=== PATIENT | male | born 1950 | race Caucasian/White ===

== ENCOUNTER 2020-12-17 09:16 | Outpatient (REF) | payer OTHER, SELFPAY ==
--- NOTE | 2020-12-17 16:15 | MHC.AU.HFU ---
Hearing Instrument Follow-Up- Binaural Date of Visit: 12/17/20 Right Ear: [employer] Supervisor: [employer] Model: Miryam 2 Pro BTE Serial Number: [id number] Repair Warranty: Loss and Damage Warranty: Battery Size: 13 Tubing: Size 3 1.3 slim tube Type of Dome: 8mm closed dome Left Ear: [employer] Supervisor: [employer] Model: Miryam 2 Pro BTE Serial Number: [id number] Repair Warranty: Loss and Damage Warranty: Battery Size: 13 Tubing: Size 3 1.3 slim tube Type of Dome: 8mm closed Follow-Up Summary: Patient arrived for audio eval scheduled by [facility]. 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 He states that the tumor removed from his left ear was approximately the size of Cutie's kristopher, and the one on the right ear was much smaller, about the size of a finger nail. A portion of Mr. Ernandez's left pinna was removed, with a large hole left in the servando bowl area. Other changes to his medical history include congestive heart failure that began approximately one year ago. Performed hearing aid maintenance today. Cleaned hearing aids, replaced slim tubes, retention wires, and domes. Aids are working well. Advised [facility] to schedule another hearing evaluation once Mr. Ernandez is fully recovered from his surgery. Diagnosis Code(s): Primary Diagnosis: H90.3 Bilateral Sensorineural Hearing Loss Signature: Provider: Izabela Gutierrez, [facility]
== END 2020-12-17 09:17 | disposition home or self-care (01) ==
LOC: HO.SH 09:16
PROVIDERS: Visit Provider Internal Medicine
DX: Z13.89 Encounter for screening for other disorder (principal)

== ENCOUNTER 2025-03-11 13:25 | Outpatient (AMB) | payer OTHER, SELFPAY ==
--- OUTSIDE RECORDS SUMMARY | 2024-08-29 06:19 | XMS_ITS | Continuity of Care Document ---
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 tel:[phone] [facility], [address] [facility], [place], [place], [id number], [place] tel:[phone] [place] Diabetes with renal manifestations, type II or unspecified type, uncontrolled 4 Josue Poole. [address], [place], [place], [id number]. tel:[phone] [facility], [address] [facility] [address] [facility], [place], [place], [id number], [place] tel:[phone] [place] abdominal pain and hip pain (chief complaint) Osteoarthrosis involving or with mention of multiple sites, but not specified as generalizedAbdominal pain, other specified site 4 No Information [facility], [address] [facility] [address] [facility], [place], [place], [id number], [place] tel:[phone] [place] abdominal pain (chief complaint) Abdominal Pain 4 Josue Poole. [address], [place], [place], [id number]. tel:[phone] [facility], [address] [facility] [facility], [place], [place], [id number], [place] tel:[phone] [place] Follow Up of medication (chief complaint)UT I (chief complaint) Dysuria 4 No Information [facility], [address] [facility] [address] [facility], [place], [place], [id number], [place] tel:[phone] [place] Cervicalgia 4 No Information [facility], [address] [facility] [address] [facility], [place], [place], [id number], [place] tel:[phone] [place] anxiety and blood pressure (chief complaint) Disruption of 24 hour sleep wake cycle, unspecifiedAnxietyHyp ertension, UnspecifiedIntestinal disaccharidase deficiencies and disaccharide malabsorptionDiabetes with peripheral circulatory disorders, type II or unspecified type, not stated as uncontrolledObesity, MorbidBMI 40.0-44.9, ADULT 4 No Information [facility], [address] [facility], [place], [place], [id number], tel:[phone] [place] Anxiety and DM (chief complaint) AnxietyDiabetes with peripheral circulatory disorders, type II or unspecified type, not stated as uncontrolledHypertens ion, Unspecified 4 No Information [facility], [address] [facility] [address], [place], [place], [id number], [place] tel:[phone] [place] neck pain (chief complaint)mo od (chief complaint) AnxietyAnxietyBrachia l neuritis or radiculitis nos 4 Josue Poole. [address], [place], [place], [id number]. tel:[phone] [facility], [address] [facility] [address], [place], [place], [id number], [place] tel:[phone] [place] incontinence , HTN and diabetes (chief complaint) Hypertension, UnspecifiedInternal hemorrhoids without mention of complicationDiabetes with peripheral circulatory disorders, type II or unspecified type, not stated as uncontrolled 3 No Information [facility], [facility], [place], [place], [id number], [place] tel:[phone] [place] [facility] enteritis o f unspecified site 3 Josue Poole. [address], [place], [place], [id number]. tel:[phone] [facility], [address] [facility] [address], [place], [place], [id number], [place] tel:[phone] [place] Mixed Hyperlipidemia 3 Josue Poole. [address], [place], [place], [id number]. tel:[phone] [facility], [address], [place], [place], [id number], [place] tel:[phone] [place] headache (chief complaint) Headache 3 Josue Poole. [address], [place], [place], [id number]. tel:[phone] [facility], [address] [facility] [address] [facility], [place], [place], [id number], [place] tel:[phone] [place] No Information 3 Puffer Gina Jackeline. [address] [place], [place], [id number]. tel:[phone] [facility], [address] [facility] [address] [facility], [place], [place], [id number], [place] tel:[phone] [place] No Information 3 No Information [facility], 1 [facility], [place], [place], [id number], [place] tel:[phone] [place] No Information 3 No Information [facility], 1 [facility], [place], [place], [id number], [place] tel:[phone] [place] DM/Hlth Main/Dis Mgmt (chief complaint) Diabetes with neurological manifestations, type II or unspecified type, not stated as uncontrolled 3 No Information [facility], 1 [facility], [place], [place], [id number], [place] tel:[phone] [place] No Information 3 Puffer Gina Jackeline. [address] [place], [place], [id number]. tel:[phone] [facility], [address], [place], [place], [id number], [place] tel:[phone] [place] diarrhea (chief complaint) DiarrheaHypertension, UnspecifiedUnspecifie d cataract 3 Josue Poole. [address], [place], [id number]. tel:[phone] [facility], [address] [facility] [address] [facility], [place], [place], [id number], [place] tel:[phone] [place] post enrollment eval (chief complaint) Diabetes with peripheral circulatory disorders, type II or unspecified type, not stated as uncontrolledPeriphera l vascular disease, unspecifiedDiabetes with neurological manifestations, type II or unspecified type, not stated as uncontrolledPeriphera l angiopathy in diseases classified elsewherePolyneuropat hy in diabetesTinnitus, unspecifiedTobacco Abuse, History ofOther and unspecified injury to headPost-void dribblingCalculus of kidneyFatigue / MalaiseCarpal Tunnel SyndromeObesity, MorbidDiabetes with peripheral circulatory disorders, type II or unspecified type, not stated as uncontrolledPeriphera l vascular disease, unspecifiedDiabetes with renal manifestations, type II or unspecified type, uncontrolledChronic kidney disease, Stage II (mild)Diabetes with neurological manifestations, type II or unspecified type, not stated as uncontrolledPolyneuro zayra in diabetesHypertension, UnspecifiedDiabetes with ophthalmic manifestations, type II or unspecified type, not stated as uncontrolledBackgroun d diabetic retinopathyDysphagia 0 8201 3 No Information [facility], [facility], [place], [place], [id number], [place] tel:[phone] [place] Chronic kidney disease, Stage II (mild)Diabetes with renal manifestations, type II or unspecified type, uncontrolled May-0 6-201 3 Josue Poole. [address], [place], [place], [id number]. tel:[phone] [facility], [facility], [place], [place], [id number], [place] tel:[phone] [place] No Information 0 3-201 3 David Sandhu. [address] [place], [place], [id number]. tel:[phone] [facility], [facility], [place], [place], [id number], [place] tel:[phone] [place] No Information 3-201 3 Despmarco antonio Cash. [address] [facility] [facility], [place], [address]. tel:[phone] [facility], 1 [facility], [place], [place], [id number], [place] tel:[phone] 30 min spent reviewing/donnelly mmarizing medical records (chief complaint) Diabetes with ophthalmic manifestations, type II or unspecified type, not stated as uncontrolledBackgroun d diabetic retinopathyDiabetic cataractMixed HyperlipidemiaRoutine Medical ExamMRSA ELSEWHERE/NOSBipolar disorder, unspecifiedAllergic rhinitis, cause unspecifiedBicuspid Aortic ValveBrachial neuritis or radiculitis nosRegional enteritis of unspecified siteGERDChronic lymphocytic thyroiditisHypertensi on, UnspecifiedInternal hemorrhoids without mention of complicationIntestina l disaccharidase deficiencies and disaccharide malabsorptionOsteoart hrosis involving or with mention of multiple sites, but not specified as generalizedS/P Valve ReplacementUnspecifie d vitamin D deficiencyMULT SEG SM BOWEL EXCISPART LG BOWEL EXCISION 1- 3 No Information [facility], [address] [address], [place], [place], [id number], [place] tel:[phone] [place] pre enrollment (chief complaint) Respiratory InsufficiencyObesity, Morbid Sep-2 0-201 3 Josue Poole. [address], [place], [place], [id number]. tel:[phone] Family History Family Member Type Diagnosis Age At Onset Mother Problem (finding) coronary arterioscleros is Brother Problem (finding) diabetes melli tus in first degree relative Mother Problem (finding) diabetes melli tus in first degree relative Sister Problem (finding) diabetes melli tus in first degree relative Immunizations Vaccine Date Status Comments Flu (split) (3 yrs or older) administered Note: Ppt reports receiving vaccine at pharmacy on said date. ; Source: New Immunization Record Tdap administered Source: Source Unspecified flu (split) (3 yrs or older) administered Source: New Immunization Record Zoster pending Source: New Imm unization Record Flu (split) (3 yrs or older) cancelled Source: New Immunization Record Payers Payer name Insurance type Covered alliance party ID Renny shankar(s) [facility] 16 [id number] [address] [id number] [place] [phone] [id number] Social History Type Description Quantity Date Captured Comments Sex Male Smoking Status No Information Chief Complaint And Reason For Visit No Information Plan Of Treatment Date Type Action Status Goal Urine Microalbumin. Due on due Goal H&P. Due on due Goal Eye Exam. Due on due Goal Mammogram (Scree valeriy); Bilateral. Due on due Goal Foot Exam. Due on due Goal TSH. Due on due Goal Mammogram (Scree valeriy); Bilateral. Due on due Goal Urine Microalbumin. Due on due Goal H&P. Due on due Goal Foot Exam. Due on due Goal TSH. Due on due Goal Eye Exam. Due on due Goal Eye Exam. Due on due Goal TSH. Due on due Goal H&P. Due on due Goal Urine Microalbumin. Due on due Goal Foot Exam. Due on due Goal Mammogram (Scree valeriy); Bilateral. Due on due Goal Urine Microalbumin. Due on due Goal Mammogram (Scree valeriy); Bilateral. Due on due Goal Eye Exam. Due on due Goal Foot Exam. Due on due Goal TSH. Due on due Goal H&P. Due on due Goal Foot Exam. Due on due Goal TSH. Due on due Goal Mammogram (Scree valeriy); Bilateral. Due on due Goal Urine Microalbumin. Due on due Goal Eye Exam. Due on due Goal H&P. Due on due Goal Urine Microalbumin. Due on due Goal TSH. Due on due Goal Foot Exam. Due on due Goal Eye Exam. Due on due Goal H&P. Due on due Goal Mammogram (Scree valeriy); Bilateral. Due on due Goal Foot Exam. Due on due Goal Urine Microalbumin. Due on due Goal H&P. Due on due Goal Mammogram (Scree valeriy); Bilateral. Due on due Goal Eye Exam. Due on due Goal TSH. Due on due Goal Mammogram (Scree valeriy); Bilateral. Due on due Goal Urine Microalbumin. Due on due Goal Foot Exam. Due on due Goal H&P. Due on due Goal Eye Exam. Due on due Goal TSH. Due on due Goal H&P. Due on due Goal Foot Exam. Due on due Goal Mammogram (Scree valeriy); Bilateral. Due on due Goal Urine Microalbumin. Due on due Goal TSH. Due on due Goal Eye Exam. Due on due Goal Eye Exam. Due on due Goal Mammogram (Scree valeriy); Bilateral. Due on due Goal Foot Exam. Due on due Goal Urine Microalbumin. Due on due Goal H&P. Due on due Goal TSH. Due on due Goal Mammogram (Scree valeriy); Bilateral. Due on due Goal Eye Exam. Due on due Goal Urine Microalbumin. Due on due Goal Foot Exam. Due on due Goal H&P. Due on due Goal TSH. Due on due Goal Diabetes screening due Goal PSA. Due on due Goal H&P. Due on due Goal Eye Exam. Due on due Goal Urine Microalbumin. Due on due Goal Mammogram (Scree valeriy); Bilateral. Due on due Goal Foot Exam. Due on due Goal TSH. Due on due Goal Foot Exam. Due on due Goal Eye Exam. Due on due Goal TSH. Due on due Goal H&P. Due on due Goal PSA. Due on due Goal Urine Microalbumin. Due on due Goal Mammogram (Scree valeriy); Bilateral. Due on due Goal Hemoglobin A1C. Due on due Goal PSA. Due on due Goal TSH. Due on due Goal Hemoglobin A1C. Due on due Goal Urine Microalbumin. Due on due Goal Mammogram (Scree valeriy); Bilateral. Due on due Goal Eye Exam. Due on due Goal H&P. Due on due Goal Foot Exam. Due on due Goal Mammogram (Scree valeriy); Bilateral. Due on due Goal PSA. Due on due Goal Urine Microalbumin. Due on due Goal TSH. Due on due Goal Hemoglobin A1C. Due on due Goal Foot Exam. Due on due Goal Eye Exam. Due on due Goal H&P. Due on due Goal Eye Exam. Due on due Goal TSH. Due on due Goal Foot Exam. Due on due Goal H&P. Due on due Goal Mammogram (Scree valeriy); Bilateral. Due on due Goal Urine Microalbumin. Due on due Goal Hemoglobin A1C. Due on due Goal PSA. Due on due Goal Eye Exam. Due on due Goal H&P. Due on due Goal Foot Exam. Due on due Goal Urine Microalbumin. Due on due Goal Mammogram (Scree valeriy); Bilateral. Due on due Goal PSA. Due on due Goal TSH. Due on due Goal Urine Microalbumin. Due on due Goal Foot Exam. Due on due Goal Eye Exam. Due on due Goal H&P. Due on due Goal Mammogram (Scree valeriy); Bilateral. Due on due Goal PSA. Due on due Goal Hemoglobin A1C. Due on due Goal TSH. Due on due Goal Eye Exam. Due on due Goal Foot Exam. Due on due Goal Urine Microalbumin. Due on due Goal PSA. Due on due Goal Mammogram (Scree valeriy); Bilateral. Due on due Goal H&P. Due on due Goal TSH. Due on due Goal PSA. Due on due Goal Hemoglobin A1C. Due on due Goal Urine Microalbumin. Due on due Goal Eye Exam. Due on due Goal Mammogram (Scree valeriy); Bilateral. Due on due Goal H&P. Due on due Goal TSH. Due on due Goal Foot Exam. Due on due Goal H&P. Due on due Goal PSA. Due on due Goal Urine Microalbumin. Due on due Goal Mammogram (Scree valeriy); Bilateral. Due on due Goal Eye Exam. Due on due Goal TSH. Due on due Goal Foot Exam. Due on due Goal Eye Exam. Due on due Goal Mammogram (Scree valeriy); Bilateral. Due on due Goal TSH. Due on due Goal Urine Microalbumin. Due on due Goal PSA. Due on due Goal Foot Exam. Due on due Goal Hemoglobin A1C. Due on due Goal H&P. Due on due Goal TSH. Due on due Goal Hemoglobin A1C. Due on due Goal Foot Exam. Due on due Goal Urine Microalbumin. Due on due Goal Eye Exam. Due on due Goal Mammogram (Scree valeriy); Bilateral. Due on due Goal PSA. Due on due Goal Eye Exam. Due on due Goal TSH. Due on due Goal Foot Exam. Due on due Goal Hemoglobin A1C. Due on due Goal Mammogram (Scree valeriy); Bilateral. Due on due Goal Urine Microalbumin. Due on due Goal PSA. Due on due Goal Eye Exam. Due on due Goal Mammogram (Scree valeriy); Bilateral. Due on due Goal Foot Exam. Due on due Goal PSA. Due on due Goal Urine Microalbumin. Due on due Goal TSH. Due on due Goal Eye Exam. Due on due Goal Mammogram (Scree valeriy); Bilateral. Due on due Goal TSH. Due on due Goal PSA. Due on due Goal Urine Microalbumin. Due on due Goal Foot Exam. Due on due Goal Eye Exam. Due on due Goal Mammogram (Scree valeriy); Bilateral. Due on due Goal Hemoglobin A1C. Due on due Goal TSH. Due on due Goal Foot Exam. Due on due Goal Urine Microalbumin. Due on due Goal PSA. Due on due Goal Foot Exam. Due on 5 due Goal Urine Microalbumin. Due on due Goal Mammogram ([place] pfeifferg); Bilateral. Due on due Goal TSH. Due on due Goal Eye Exam. Due on due Goal PSA. Due on due Goal TSH. Due on due Goal Eye Exam. Due on due Goal Urine Microalbumin. Due on due Goal PSA. Due on due Goal Urine Microalbumin. Due on due Goal PSA. Due on due Goal Eye Exam. Due on due Goal TSH. Due on due Goal Urine Microalbumin. Due on due Goal TSH. Due on due Goal PSA. Due on due Goal Eye Exam. Due on due Goal TSH. Due on due Goal Urine Microalbumin. Due on due Goal PSA. Due on due Goal Eye Exam. Due on due Goal Eye Exam. Due on due Goal ALT. Due on due Goal Hemoglobin A1C. Due on due Goal PSA. Due on due Goal ECG. Due on due Goal Urine Microalbumin. Due on due Goal TSH. Due on due Goal AST. Due on due Goal Urine Microalbumin. Due on due Goal ECG. Due on due Goal Eye Exam. Due on due Goal TSH. Due on due Goal PSA. Due on due Goal Hemoglobin A1C. Due on due Goal TSH. Due on due Goal Hemoglobin A1C. Due on due Goal ECG. Due on due Goal ALT. Due on due Goal Urine Microalbumin. Due on due Goal PSA. Due on due Goal Eye Exam. Due on due Goal AST. Due on due Goal AST. Due on due Goal Eye Exam. Due on due Goal Hemoglobin A1C. Due on due Goal TSH. Due on due Goal Urine Microalbumin. Due on due Goal ECG. Due on due Goal ALT. Due on due Goal PSA. Due on due Goal Urine Microalbumin. Due on due Goal TSH. Due on due Goal PSA. Due on due Goal ECG. Due on due Goal Eye Exam. Due on due Goal ALT. Due on due Goal AST. Due on due Goal ALT. Due on due Goal TSH. Due on due Goal Eye Exam. Due on due Goal Hemoglobin A1C. Due on due Goal Urine Microalbumin. Due on due Goal AST. Due on due Goal PSA. Due on due Goal ECG. Due on due Goal ALT. Due on due Goal Hemoglobin A1C. Due on due Goal AST. Due on due Goal Eye Exam. Due on due Goal TSH. Due on due Goal Lipid Panel. Due on 014 due Goal ECG. Due on due Goal PSA. Due on due Goal Urine Microalbumin. Due on due Goal AST. Due on due Goal ALT. Due on due Goal Urine Microalbumin. Due on due Goal Hemoglobin A1C. Due on due Goal Lipid Panel. Due on 014 due Goal PSA. Due on due Goal TSH. Due on due Goal ECG. Due on due Goal Eye Exam. Due on due Goal PSA. Due on due Goal Hemoglobin A1C. Due on due Goal ALT. Due on due Goal Eye Exam. Due on due Goal AST. Due on due Goal Lipid Panel. Due on due Goal ECG. Due on due Goal TSH. Due on due Goal Urine Microalbumin. Due on due Goal Hemoglobin A1C. Due on due Goal AST. Due on due Goal Lipid Panel. Due on due Goal ALT. Due on due Goal Urine Microalbumin. Due on due Goal Eye Exam. Due on due Goal ECG. Due on due Goal PSA. Due on due Goal TSH. Due on due Goal PSA. Due on due Goal Eye Exam. Due on due Goal Hemoglobin A1C. Due on due Goal ECG. Due on due Goal ALT. Due on due Goal Lipid Panel. Due on due Goal Urine Microalbumin. Due on due Goal AST. Due on due Goal TSH. Due on due Goal Urine Microalbumin. Due on due Goal PSA. Due on due Goal AST. Due on due Goal Lipid Panel. Due on due Goal TSH. Due on due Goal Hemoglobin A1C. Due on due Goal ALT. Due on due Goal Eye Exam. Due on due Goal ECG. Due on due Goal ECG. Due on due Goal ALT. Due on due Goal Lipid Panel. Due on due Goal PSA. Due on due Goal TSH. Due on due Goal Eye Exam. Due on due Goal AST. Due on due Goal Hemoglobin A1C. Due on due Goal Urine Microalbumin. Due on due Goal ALT. Due on due Goal Lipid Panel. Due on due Goal TSH. Due on due Goal ECG. Due on due Goal PSA. Due on due Goal Urine Microalbumin. Due on due Goal AST. Due on due Goal Eye Exam. Due on due Goal Hemoglobin A1C. Due on due Goal TSH. Due on due Goal AST. Due on due Goal Hemoglobin A1C. Due on due Goal ECG. Due on due Goal ALT. Due on due Goal Urine Microalbumin. Due on due Goal Eye Exam. Due on due Goal PSA. Due on due Goal Lipid Panel. Due on due Goal PSA. Due on due Goal Hemoglobin A1C. Due on due Goal Eye Exam. Due on due Goal ALT. Due on due Goal AST. Due on due Goal TSH. Due on due Goal Urine Microalbumin. Due on due Goal Lipid Panel. Due on due Goal ECG. Due on due Goal AST. Due on due Goal TSH. Due on due Goal Urine Microalbumin. Due on due Goal ALT. Due on due Goal Lipid Panel. Due on due Goal PSA. Due on due Goal Eye Exam. Due on due Goal ECG. Due on due Goal H&P. Due on due Goal Hemoglobin A1C. Due on due Goal PSA. Due on due Goal H&P. Due on due Goal ECG. Due on due Goal Hemoglobin A1C. Due on due Goal Lipid Panel. Due on due Goal Urine Microalbumin. Due on due Goal Eye Exam. Due on due Goal Eye Exam. Due on due Goal Lipid Panel. Due on due Goal ECG. Due on due Goal H&P. Due on due Goal PSA. Due on due Goal Urine Microalbumin. Due on due Goal Urine Microalbumin. Due on due Goal Lipid Panel. Due on due Goal H&P. Due on due Goal ECG. Due on due Goal PSA. Due on due Goal Eye Exam. Due on due Goal ECG. Due on due Goal Urine Microalbumin. Due on due Goal H&P. Due on due Goal Lipid Panel. Due on due Goal Eye Exam. Due on due Goal PSA. Due on due Goal Lipid Panel. Due on due Goal Eye Exam. Due on due Goal ECG. Due on due Goal Urine Microalbumin. Due on due Goal H&P. Due on due Goal PSA. Due on due Goal Urine Microalbumin. Due on due Goal ECG. Due on due Goal Eye Exam. Due on due Goal H&P. Due on due Goal Lipid Panel. Due on due Goal PSA. Due on due Goal ECG. Due on due Goal H&P. Due on due Goal Urine Microalbumin. Due on due Goal Eye Exam. Due on due Goal Lipid Panel. Due on due Goal PSA. Due on due Goal Lipid Panel. Due on due Goal H&P. Due on due Goal PSA. Due on due Goal ECG. Due on due Goal BMP fasting. Due on due Goal Urine Microalbumin. Due on due Goal PSA. Due on due Goal Lipid Panel. Due on due Goal BMP fasting. Due on due Goal ECG. Due on due Goal Urine Microalbumin. Due on due Goal H&P. Due on due Goal BMP fasting. Due on due Goal ECG. Due on due Goal Lipid Panel. Due on due Goal PSA. Due on due Goal Urine Microalbumin. Due on due Goal H&P. Due on due Goal BMP fasting. Due on due Goal H&P. Due on due Goal ECG. Due on due Goal H&P. Due on due Goal ECG. Due on due Goal BMP fasting. Due on due Goal BMP fasting. Due on due Goal ECG. Due on due Goal H&P. Due on due Goal BMP fasting. Due on due Goal ECG. Due on due Goal H&P. Due on due Goal ECG. Due on due Goal BMP fasting. Due on due Goal H&P. Due on due Goal ECG. Due on due Goal BMP fasting. Due on due Goal H&P. Due on due Goal ECG. Due on due Goal H&P. Due on due Goal BMP fasting. Due on due Goal BMP fasting. Due on due Goal ECG. Due on due Goal H&P. Due on due Goal ECG. Due on due Goal BMP fasting. Due on due Goal H&P. Due on due Goal BMP fasting. Due on due Goal ECG. Due on due Goal ECG. Due on due Goal Hemoglobin A1C. Due on due Goal ECG. Due on due Goal ECG. Due on due Goal Hemoglobin A1C. Due on due Goal ECG. Due on due Goal Hemoglobin A1C. Due on due Goal ECG. Due on due Goal BMP fasting. Due on due Goal Foot Exam. Due on due Goal Urine Microalbumin. Due on due Goal BMP fasting. Due on due Goal Urine Microalbumin. Due on due Goal ECG. Due on due Goal Foot Exam. Due on due Goal Foot Exam. Due on due Goal ECG. Due on due Goal BMP fasting. Due on due Goal Urine Microalbumin. Due on due Goal Urine Microalbumin. Due on due Goal ECG. Due on due Goal BMP fasting. Due on due Goal Foot Exam. Due on due Goal Urine Microalbumin. Due on due Goal Foot Exam. Due on due Goal BMP fasting. Due on due Goal ECG. Due on due Goal ECG. Due on due Goal BMP fasting. Due on due Goal Foot Exam. Due on due Goal Urine Microalbumin. Due on due Goal BMP fasting. Due on due Goal ECG. Due on due Goal Urine Microalbumin. Due on due Goal Foot Exam. Due on 4 due Goal ECG. Due on due Goal Foot Exam. Due on 4 due Goal BMP fasting. Due on due Goal PSA. Due on due Goal Urine Microalbumin. Due on due Goal PSA. Due on due Goal ECG. Due on due Goal Foot Exam. Due on 4 due Goal BMP fasting. Due on due Goal Urine Microalbumin. Due on due Goal Urine Microalbumin. Due on due Goal ECG. Due on due Goal Foot Exam. Due on 3 due Goal PSA. Due on due Goal BMP fasting. Due on due Goal TSH. Due on due Goal BMP fasting. Due on due Goal TD Vaccine. Due on 23 due Goal Lipid Panel. Due on due Goal Hemoglobin A1C. Due on due Goal Influenza Vaccine. Due on due Goal H&P. Due on due Goal ECG. Due on due Goal ALT. Due on due Goal AST. Due on due Goal PSA. Due on due Goal Colonoscopy. Due on 022 due Goal Pneumococcal Vaccine. Due on due Goal Eye Exam. Due on due Goal Foot Exam. Due on 3 due Goal PPD (TST). Due on 4 due Goal Urine Microalbumin. Due on due Referral Ordered: Referrals: Orthopedic Surgery. Consult Appointment date/timeframe: 03/26/2015 ordered Referral Ordered: Dr Swanson (related to Onychocryptosis) ordered Referral Referred To: Dr Swanson Ordered: Referrals: Podiatry. Dr Swanson ordered Referral Ordered: Referrals: Podiatry. Consult Appointment date/timeframe: 02/04/2015 ordered Referral Ordered: Referrals: Podiatry ordered Referral Ordered: Modified Barium Swallow Appointment date/timeframe: 07/04/2014 ordered Referral Ordered: Dentistry (related to Routine Medical Exam) ordered Referral Ordered: referred to Speech Therapy for evaluation 2 Weeks (related to Dysphagia as late effect of cerebrovascular disease) ordered Referral Ordered: Referrals: Cardiology. Location: [facility] Dr Sibley. Evaluate and treat Appointment date/timeframe: 06/19/2014 ordered Referral Ordered: Referrals: Dentistry. Evaluate and treat Appointment date/timeframe: next dental ordered Referral Ordered: Referrals: Cardiology. Consult Appointment date/timeframe: 06/19/2014 ordered Referral Referred To: Dr Velazco Ordered: Referrals: Ophthalmology. Dr Velazco. Evaluate and treat Appointment date/timeframe: 02/12/2014 ordered Referral Referred To: [facility] Ordered: Referral: [facility]. Evaluate and treat. Appointment date/timeframe: 12/03/2013 ordered Referral Ordered: [facility] (related to GERD) ordered Referral Ordered: Referral: [facility]. Follow-up and Treat. ordered Referral Ordered: POLYSOMNOGRAPHY 1-3 Appointment date/timeframe: 4 Weeks ordered Referral Ordered: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
--- NOTE | 2025-03-11 13:30 | MHC.OFFVIS ---
Intake Visit Reasons: Sz Allergies adhesive Allergy (Unknown, Verified 03/05/25 11:21) Unknown cyclobenzaprine (CYCLOBENZAPRINE) Allergy (Unknown, Unverified 05/08/20 16:18) LOSS OF MUSCLE CONTROL lisinopril (LISINOPRIL) Allergy (Unknown, Unverified 05/08/20 16:18) COUGH SEAFOOD Allergy (Unknown, Uncoded 05/08/20 16:18) THROAT CLOSES SEASONAL ALLERGIES Allergy (Unknown, Uncoded 05/08/20 16:18) RUNNY NOSE Medication List - Last Reconciled 03/11/25 by Tigre Ordoñez MD amlodipine 10 mg PO DAILY atorvastatin (Lipitor) 20 mg PO DAILY bupropion HCl XL 300 mg PO QAM dulaglutide 4.5 mg subcut QWEEK fluoxetine 10 mg PO DAILY gabapentin 300 mg PO BID insulin glargine (Lantus U-100 Insulin) 10 units subcut BID isosorbide mononitrate ER 30 mg PO QAM metformin 1,000 mg PO DAILY metoprolol tartrate 50 mg PO DAILY pantoprazole 40 mg PO DAILY primidone 50 mg PO BEDTIME spironolactone 25 mg PO DAILY upadacitinib ER 45 mg PO DAILY HPI Comments Details: 74 yo LH man with CAD, arotic stenosis s/p bovine valve replacement, CHF, IDDM, HTN, Chron's disease, CDK, and SIRISHA was initially see for seizure disorder. He reported that he was having episodes when he was unresponsive and people were trying to talk to him. It was lasting for a few minutes to an hour or two. No falling or convulsion associated with it. Routine and 48 hr EEGs were ok. He was treated for tremor wtih primidone. He was c/o being shaky and dropping things. [facility] Medical History (Updated 03/11/25 @ 13:33 by Tigre Ordoñez MD) CKD (chronic kidney disease) Depression CAD (coronary artery disease) SIRISHA (obstructive sleep apnea) COPD (chronic obstructive pulmonary disease) Acute Crohn's disease CHF (congestive heart failure) HLD (hyperlipidemia) Hypertension Benign essential tremor Complex partial seizures Review of Systems Const Details: Constitutional:?No fever, chills, fatigue, weight loss, or night sweats. HEENT:?No headache, vision changes, hearing loss, nasal congestion, sore throat. Neurological:?No dizziness, syncope, seizures, numbness, tingling, weakness, tremors, memory loss. Psychiatric:?No anxiety, depression, mood swings, sleep disturbance, or hallucinations. Endocrine:?No heat/cold intolerance, polydipsia, polyuria, or hair/skin changes. Hematologic/Lymphatic:?No easy bruising, bleeding, or lymphadenopathy. Integumentary (Skin):?No rash, lesions, itching, or color changes. ? Physical Exam Neuro Other: Mental Status: Alert and oriented to person, place, and time. Normal attention. Normal spontaneous speech, fluency, and comprehension. No obvious issues with mood and memory. Affect is appropriate. Cranial Nerves: CN II: Visual soot full to confrontation, visual acuity intact. CN III, IV, : Pupils equal, round, reactive to light and accommodation. Extraocular movements are normal. CN V: Facial sensation is normal. CN VII: Facial movements symmetrical. CN VIII: Hearing intact to bedside conversation is normal. CN IX, X: Palate elevates symmetrically. CN XI: Shoulder shrug and head turn symmetrical. CN XII: Tongue midline without atrophy or fasciculations. Extrapyramidal: Full facial expressions and blinking. No rigidity. Movements are appropriate with no tremor or abnormality. Speech: Normal; no dysarthria or tremor. Assessment & Plan Assessment & Plan (1) Complex partial seizures: Comment: 48 hr EEG at [facility] [place] in 2023: OK with one seizure EEG at off in Apr 2024: Slow CT brain WO at [facility] [place] in December 2023: Mod diff atrophy CTA brain and neck at [facility] [place] in December 2023: OK. Code(s): G40.209 - Localization-related (focal) (partial) symptomatic epilepsy and epileptic syndromes with complex partial seizures, not intractable, without status epilepticus Category: Medical (2) Benign essential tremor: Code(s): G25.0 - Essential tremor Category: Medical Plan Impression: a: Benign essential tremor b: Complex partial seizure disorder Rec: a: Primidone 50mg, two tabs, bid Medications: New primidone 100 mg (2 x 50 mg) PO BID 120 tabs 0RF 30 days Coding Level of Care Code Est Pt Level 4 (32410) Diagnoses Complex partial seizures G40.209 Benign essential tremor G25.0
--- OUTSIDE RECORDS SUMMARY | 2025-03-11 14:09 | XMS_ITS ---
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 Other Current Plans [facility] INFLIXIMAB (REMICADE) INFUSION* Plan Start Date:08/11/2023 Plan Provider:Loan Garcia MD Linked Problems Crohn's disease of small int estine with rectal bleeding (HCC) Treatment Medications acetaminophen (TYLENOL EXTRA STRENGTH) 500 MGdiphenhydrAMINE (BENADRYL)inFLIXimab (REMICADE)inFLIXimab (REMICADE) INFUSION in 250 mL Past Plans Radiation Treatments * No radiation treatments are documented for this patient in [facility]. Treatments may have been administered in another system.
--- OUTSIDE RECORDS SUMMARY | 2025-03-11 14:09 | XMS_ITS | Clinical Summary ---
Author Organization [facility] Address [address] [place] [address] Phone Care Team Providers Care Forest Supervisor Name Role Phone Todd Laurent NP Primary Care Provider [phone] Allergies Active Allergy Reactions Criticality Noted Date Comments Adhesive Tape-Silicones Unknown 02/02/2022 Cyclobenzaprine Weakness Low 09/14/2012 Loss of muscle control Fish Containing Products Swelling 09/14/2012 Throat swelling Fish Oil 03/05/2021 Throat swelling Latex 03/26/2024 Other Reaction(s): skin breakdown Lisinopril Cough 09/14/2012 Other 10/08/2024 seafood Pollen Extracts 03/05/2021 Shellfish Containing Products Anaphylaxis High 12/11/2024 Medications flash glucose scanning reader (FreeStyle Julito 2 [place]) [facility] Use as directed Acti ve pen needle, diabetic (BD Ultra-Fine Rosalba Pen Needle) 32 gauge x 5/32 needle USE TO INJECT INSULIN UP TO 5 TIMES PER DAY Active pantoprazole (PROTONIX) 40 mg EC tabletIndicatio ns:Osteopenia, unspecified location Take 1 tablet (40 mg total) by mouth 1 (one) time each day before breakfast. Do not crush, chew, or split. 1 tab(s) orally once per day 360 each 11/14/19 25 026 Active flash glucose sensor (FreeStyle Julito 2 Sensor) kitIndications: Type 2 diabetes mellitus with hyperglycemia, with long-term current use of insulin (CMS/HCC V24, CMS/HCC V28) Inject 1 EA under the skin every 14 (fourteen) days. Use as directed 2 EA 11/14/19 Active amLODIPine (NORVASC) 5 mg tabletIndicatio ns:Primary hypertension Take 1 tablet (5 mg total) by mouth 1 (one) time each day. 30 each 11/14/19 Active senna (SENOKOT) 8.6 mg tabletIndicatio ns:History of colon polyps Take 1 tablet (8.6 mg total) by mouth at bedtime. 1 tab(s) orally once a day (at bedtime) 30 each 12/18/19 Active isosorbide mononitrate (IMDUR) 30 mg 24 hr tabletIndicatio ns:Other chest pain,Chronic diastolic heart failure (CMS/[facility] V24, CMS/[facility] V28) Take 1 tablet (30 mg total) by mouth 1 (one) time each day. Do not crush or chew. 30 each 12/19/19 Active torsemide (DEMADEX) 20 mg tabletIndicatio ns:Chronic diastolic heart failure (CMS/[facility] V24, CMS/[facility] V28) Take 1 tablet (20 mg total) by mouth 1 (one) time each day. 30 each 12/29/19 Active magnesium oxide (MAG-OX) 400 mg magnesium tabletIndicatio ns:Hypomagnesem ia Take 1 tablet (400 mg total) by mouth 1 (one) time each day. 30 tablet 01/05/20 Active metoprolol tartrate (LOPRESSOR) 25 mg tabletIndicatio ns:Bradycardia Take 0.5 tablets (12.5 mg total) by mouth 2 (two) times a day. 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 60 each 02/04/20 25 026 Active ferrous fumarate 456 mg (150 mg iron) tabletIndicatio ns:Iron deficiency,Ava min D deficiency,Heal thcare maintenance,Dry eyes,Primary insomnia,Chroni c diastolic congestive heart failure (CMS/HCC V24, CMS/HCC V28) Take 1 tablet by mouth every other day. 1 tab by mouth every other day 15 each 02/22/20 25 026 Active cholecalciferol (VITAMIN D-3) 125 mcg (5,000 unit) capsuleIndicati ons:Iron deficiency,Ava min D deficiency,Heal thcare maintenance,Dry eyes,Primary insomnia,Chroni c diastolic congestive heart failure (CMS/HCC V24, CMS/HCC V28) Take 1 capsule (5,000 Units total) by mouth 1 (one) time each day. 30 each 02/22/20 Active B complex 09-kweeq-T-biot -zinc (Dialyvite) [id number] ui-wz-hjs-mg tabletIndicatio ns:Iron deficiency,Ava min D deficiency,Heal thcare maintenance,Dry eyes,Primary insomnia,Chroni c diastolic congestive heart failure (CMS/HCC V24, CMS/HCC V28) Take 1 tablet by mouth 1 (one) time each day. 1 tab by mouth daily; administer with a meal 30 each 02/22/20 Active artificial tears, hypromellose, (ISOPTO TEARS) 0.5 % ophthalmic solutionIndicat ions:Iron deficiency,Ava min D deficiency,Heal thcare maintenance,Dry eyes,Primary insomnia,Chroni c diastolic congestive heart failure (CMS/HCC V24, CMS/HCC V28) Administer 1 drop into both eyes 4 (four) times a day if needed (dry itchy eyes). 1 drop into both eyes 4 times per day prn dry eyes 1 each 02/22/20 Active insulin glargine (Lantus Solostar U-100 Insulin) 100 unit/mL (3 mL) injection penIndications: Iron deficiency,Ava min D deficiency,Heal thcare maintenance,Dry eyes,Primary insomnia,Chroni c diastolic congestive heart failure (CMS/HCC V24, CMS/HCC V28) Inject 25 Units under the skin 1 (one) time each day in the morning. 15 mL 02/22/20 Active melatonin 5 mg tabletIndicatio ns:Iron deficiency,Ava min D deficiency,Heal thcare maintenance,Dry eyes,Primary insomnia,Chroni c diastolic congestive heart failure (CMS/HCC V24, CMS/HCC V28) Take 1 tablet (5 mg total) by mouth at bedtime. 1 tab by mouth every day at bedtime 30 tablet 02/22/20 Active spironolactone (ALDACTONE) 25 mg tabletIndicatio ns:Iron deficiency,Ava min D deficiency,Heal thcare maintenance,Dry eyes,Primary insomnia,Chroni c diastolic congestive heart failure (CMS/HCC V24, CMS/HCC V28) Take 1 tablet (25 mg total) by mouth 1 (one) time each day. 1 tab by mouth daily 30 each 11 02/22/20 25 026 Active lacosamide (VIMPAT) 150 mg tablet tabletIndicatio ns:Nonintractab le epileptic spasms without status epilepticus ([facility] V24, [facility] V28) Take 1 tablet (150 mg total) by mouth 2 (two) times a day. Max Daily Amount: 300 mg 60 tablet 5 02/27/20 25 026 Active prednisoLONE acetate (Pred Forte) 1 % ophthalmic suspensionIndic ations:Postoper ative care for cataract of right eye Administer 1 drop into the right eye 4 (four) times a day for 4 days. 5 mL 03/07/20 025 Active cholecalciferol (VITAMIN D-3) 125 mcg (5,000 unit) capsule Take by mouth. 025 Discontinu ed(Reorder ) fluticasone propionate (FLONASE) 50 mcg/actuation nasal spray 1 spray. 025 Discontinu ed(Therapy completed) ferrous fumarate 456 mg (150 mg iron) tablet 1 tab by mouth every other day 025 Discontinu ed(Reorder ) artificial tears, hypromellose, (ISOPTO TEARS) 0.5 % ophthalmic solution 1 drop into both eyes 4 times per day prn dry eyes 025 Discontinu ed(Reorder ) melatonin 5 mg tablet 1 tab by mouth every day at bedtime 025 Discontinu ed(Reorder ) spironolactone (ALDACTONE) 25 mg tablet 1 tab by mouth daily 025 Discontinu ed(Reorder ) B complex 21-oogkp-C-biot -zinc (Dialyvite) [id number] oo-wr-gul-mg tablet 1 tab by mouth daily; administer with a meal 025 Discontinu ed(Reorder ) insulin glargine (Lantus Solostar U-100 Insulin) 100 unit/mL (3 mL) injection pen Inject 25 units subcutaneously every morning for blood sugar 025 Discontinu ed(Reorder ) lacosamide (VIMPAT) 150 mg tablet tablet Take 1 tablet (150 mg total) by mouth 2 (two) times a day. Max Daily Amount: 300 mg 60 tablet 01/09/20 25 025 Discontinu ed(Reorder ) ofloxacin (Ocuflox) 0.3 % ophthalmic solutionIndicat ions:Herpes zoster ophthalmicus of left eye Administer 1 drop into the left eye 3 (three) times a day for 10 days. 5 mL 02/07/20 25 025 dexAMETHasone (DECADRON) 4 mg tabletIndicatio ns:Herpes zoster ophthalmicus of left eye Take 1 tablet (4 mg total) by mouth 2 (two) times a day for 4 days. 8 each 02/07/20 25 025 Discontinu ed(Therapy completed) Hospital, Clinic, or Other Facility Administered Medication Ordered Dose Route Frequency Start Date End Date Status dulaglutide (TRULICITY) injection 4.5 mgIndications:Type 2 diabetes mellitus with other specified complication, with long-term current use of insulin ([facility] V24, [facility] V28) 4.5 mg subQ Every 7 days 10/22/2024 Active flash glucose sensor kit 1 EAIndications:Type 2 diabetes mellitus treated with insulin ([facility] V24, [facility] V28) 1 EA misc Every 14 days 10/15/2024 Acti ve Active Problems Problem Noted Date Diagnosed Date Herpes zoster ophthalmicus 01/28/2025 Assessment & Plan (03/05/2025 1:56 PM EDT): Hi lesions have mostly resolved. Assessment & Plan (02/19/2025 1:16 PM EDT): Healing lesions periorbital left eye, left upper facial cheek, temporal hair line, no open or blistering lesions present. Hydrocortisone (anti-itch cream) with instruction to keep cream out of his eye, wash hands after applying so to avoid eye contact if rubbing eyes. Par stated understanding to all instructions, will continue to monitor. Assessment & Plan (02/12/2025 3:50 PM EDT): Resolving after treatment with Dexamethasone 4 mg PO BID X 5 days and oxafloxacin 0.3% ophthalmic solution; 1 drop into left eye 3 X day for 10 days, (4 days remaining on treatment). Referral to ophthalmology for f/u s/p treatment ordered, will CTM. Assessment & Plan (02/05/2025 1:05 PM EDT): Assessment: CC: He states the vision in he left eye is a little blurry but better. He rates his pain at worst at 8/10, moving his jaw makes it worse and the pain radiates to his left ear. Physical Exam: Fresh zoster lesions in left temporal scalp that are also see on his lower left eye lid. sclera/conjunctiva anicteric/clear pink, EOMs intact, no nystagmus, Left EAC w/o zoster lesions under direct visualization with otoscope. Plan: Transfer to ED for evaluation and management of Herpes zoster ophthalmicus w/IV antiviral and corticosteroid treatment. [facility] ED contacted by this provider, report given, [facility] van transport to ED, will CTM. Assessment & Plan (01/28/2025 1:06 PM EDT): Par called ML c/o rash around his left eye, he provided a selfy picture. D/T the striking similarities to what his photograph show and herpes zoster ophthalmicus, starting valacyclovir 500 mg PO Q12 hours X 7 days (renal dosing for CKD 4), will CTM. 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 bihemispheric white matter lesions likely due to small vessel ischemic disease. The gradient refocused acquisition is normal. CT head reported as no acute process. Rickie reported after ~3 hrs as Three focal onset seizures, from right temporal head region, each lasting fo 1.5-3 minutes. Per report from team at bedside, associated with left sided facial twitching and occasional leg twitching EEG on 12/13 reported as 1 bifrontal sharp and slow wave complex was noted. There was also another generalized delta range discharge during wakefulness. Patient's symptoms did not reveal any obvious EEG abnormalities Epilepsy - Right temporal onset both levels of Lacosamide are still pending (from 01/02 and 01/07) they take 5-8 business days Pt kandace be discharged on Lacosamide 150 mg twice a day Possible pseudoseizures: As per psych: oriented x4 reports history of those seizures that look like you are not paying attention and more recently the bigger ones where everything twitches . Reports history of bipolar disorder, managed with his outpatient providers. Last inpatient psychiatric hospitalization was in 1998. Patient actively engaged in treatment with [facility] with weekly therapist visits. Reports I want to get back home, the food is better Denies thoughts of harming himself or others. Reports feeling anxious a little bit all the time but I just do what the therapist ells me to do Encourage patient to follow up with outpatient psychiatric providers once determined medically appropriate for discharge. Patient recently started on lacosamide which not as typically mood stabilizing as other antiepileptic medication may still promote mood stabilizing benefits and mood should be monitored may benefit from outpatient CBT, to promote development of coping skills and stress resolution . Assessment & Plan (02/26/2025 2:32 PM EDT): Lacosamide levels: 10.4 on 01/07/2025; 7.6 on 01/02/2025. Discussed with Par the assessment and plan from last hospitalization. Plan: continue current medications and refer back to Neurology to r/o possible Parkinson's Disease etiology. Assessment & Plan (01/04/2025 8:08 AM EDT): Par hospitalized for seizure activity. EEG on 01/03/25 showed: Impression: This EEG is considered abnormal due to #1. Two prolonged bursts of epileptiform discharges seen from the right posterior temporal region with the second 1 having bilateral spread. #2. There is also mild generalized background slowing. This EEG correlates with a seizure focus in the right posterior temporal region and mild diffuse cerebral dysfunction, will CTM. Chronic kidney disease, stag e 4 (severe) (CMS/HCC V24, CMS/HCC V28) 11/13/2024 Assessment & Plan (03/05/2025 1:56 PM EDT): Last few GFRs in recent months are 28 to 30. Given this, he will need to be renally dosed for any antiepileptics. f/u with PCP. Morbid obesity with body mas s index (BMI) of 40.0 or higher ([facility] [place]24, [facility] V28) 11/13/2024 Hyperkeratosis 11/13/2024 Hyperkeratosis 11/13/2024 Overview (11/13/2024): Hyperkeratosis: Hyperkeratotic lesions inside left earlobe, referring to Dermatology d/t history of skin cancer in left ear. Partial idiopathic epilepsy with seizures of localized onset, not intractable, without status epilepticus ([facility] V24, [facility] V28) 11/06/2024 Overview (11/06/2024): Seizure observed by this provider in the clinic. Fasciculations of participants face, bilateral arms that lasted about 15 to 20 seconds. Par was brought to the clinic from [facility]: PIV start after Par agreed, IVNS infused over two hours for a total of 300ml. STAT labs sent to [facility] returned: Component Latest Ref Rng 11/06/2024 Sodium 133 - 145 mmol/L 135 Potassium 3.5 - 5.5 mmol/L 4.6 Chloride 96 - 110 mmol/L 102 CO2 21 - 32 mmol/L 25 Anion Gap 3 - 11 8 Glucose 70 - 100 mg/dL 253 (H) BUN 5 - 25 mg/dL 29 (H) Creatinine 0.70 - 1.30 mg/dL 2.32 (H) Calculated GFR >=60 mL/min/1.73m2 29 (L) BUN/Creatinine Ratio 12.5 Albumin 3.2 - 5.0 g/dL 3.4 Calcium 8.5 - 10.5 mg/dL 8.8 AST (SGOT) 10 - 42 unit/L 31 ALT (SGPT) 10 - 60 unit/L 37 Alkaline Phosphatase 42 - 121 unit/L 82 Total Protein 6.0 - 8.0 g/dL 6.3 Total Bilirubin 0.0 - 1.4 mg/dL 0.3 Component Latest Ref Rng 11/06/2024 Auto WBC 4.8 - 10.8 K/mcL 4.7 (L) RBC 4.50 - 5.50 M/mcL 3.20 (L) Hemoglobin 13.5 - 17.5 g/dL 10.3 (L) Hematocrit 42.0 - 54.0 % 31.6 (L) MCV 79.0 - 98.0 FL 97.8 MCH 27.0 - 32.0 pcg 31.9 MCHC 32.0 - 37.0 g/dL 32.6 RDW 11.0 - 15.0 % 13.7 Platelets 130 - 400 K/mcL 130 MPV 7.0 - 11.0 FL 10.7 NRBC <1.0 % 0.0 NRBC Absolute <0.10 K/mcL 0.00 Neutrophils Relative % 71.9 Lymphocytes Relative % 14.3 Monocytes Relative % 11.5 Eosinophils Relative % 1.5 Basophils Relative % 0.6 Immature Granulocytes Relative % 0.2 Neutrophils Absolute 1.50 - 7.00 K/mcL 3.38 Lymphocytes Absolute 1.00 - 5.00 K/mcL 0.67 (L) Monocytes Absolute 0.20 - 1.00 K/mcL 0.54 Eosinophils Absolute 0.00 - 0.50 K/mcL 0.07 Basophils Absolute 0.00 - 0.20 K/mcL 0.03 Immature Granulocytes Absolute 0.00 - 0.03 K/mcL 0.01 Labs are at [facility] baseline. Ambulatory EEG in July 2024: This is a 16 channel 48 hr EEG. Patient kept a diary and reported a seizure. Each day of EEG was separately reviewed and including wakefulness and sleep. Background EEG during wakefulness was symmetrical alpha posteriorly and lower amplitude faster anteriorly. Patient transitioned to normal stages of sleep during both days. No significant abnormality noted including during the time of notation. Cardiac rhythm was normal. Impression: No significant abnormality noted on this 48 hr EEG with patient reporting one seizure. Will refer back to Neurology for witnessed seizure activity. Assessment & Plan (12/18/2024 1:09 PM EDT): Par sent to the ED from [facility] on 12/11/24 for witnessed seizure activity. Hospital Neurology consult on 12/14/24: Neurology consult: Dr. Elie May MD. 12/14/2024 - I independently reviewed results of CT/MRI HEAD. MRI on my read is showing no abnormal diffusion, bi hemispheric white matter lesions likely due to small vessel ischemic disease. The gradient refocused acquisition is normal. CT head reported as no acute process. Cerebella reported after 3 hours as three focal onset seizures, from the right temporal head region, each lasting for 1.5 - 3 minutes. Per reported as 1 bifrontal sharp and slow wave complex was noted. There was also another generalized delta range discharge during the wakefulness. Patient's symptoms did not reveal any obvious EEG abnormalities. I independently reviewed the abnormal EEG tracing. Labs Cr 1.94 Dx: Breakthrough right temporal focal seizures; Epilepsy . He was discharged on Lacosamide 100 mg PO BID. Gerardo reports significant improvement in symptoms. Neurology f/u with Dr. Tiago MD on 06/04/25 scheduled, will continue with plan: Lacosamide and Neuro f/u and get him into see neuro sooner if needed. Assessment & Plan (12/17/2024 9:12 AM EDT): EEG performed on 12/13/24: Impression: Mildly abnormal EEG suggestive of frontal lobe seizure activity that typically can present as motor seizures and many times may not have corresponding EEG abnormality on this type of EEG tracing. Plan: Neurology f/u ordered. Assessment & Plan (11/06/2024 2:08 PM EDT): Seizure observed by this provider in the clinic. Fasciculations of participants face, bilateral arms that lasted about 15 to 20 seconds. Par was brought to the clinic from [facility]: PIV start after Par agreed, IVNS infused over two hours for a total of 300ml. STAT labs sent to [facility] returned: Component Latest Ref Rng 11/06/2024 Sodium 133 - 145 mmol/L 135 Potassium 3.5 - 5.5 mmol/L 4.6 Chloride 96 - 110 mmol/L 102 CO2 21 - 32 mmol/L 25 Anion Gap 3 - 11 8 Glucose 70 - 100 mg/dL 253 (H) BUN 5 - 25 mg/dL 29 (H) Creatinine 0.70 - 1.30 mg/dL 2.32 (H) Calculated GFR >=60 mL/min/1.73m2 29 (L) BUN/Creatinine Ratio 12.5 Albumin 3.2 - 5.0 g/dL 3.4 Calcium 8.5 - 10.5 mg/dL 8.8 AST (SGOT) 10 - 42 unit/L 31 ALT (SGPT) 10 - 60 unit/L 37 Alkaline Phosphatase 42 - 121 unit/L 82 Total Protein 6.0 - 8.0 g/dL 6.3 Total Bilirubin 0.0 - 1.4 mg/dL 0.3 Component Latest Ref Rng 11/06/2024 Auto WBC 4.8 - 10.8 K/mcL 4.7 (L) RBC 4.50 - 5.50 M/mcL 3.20 (L) Hemoglobin 13.5 - 17.5 g/dL 10.3 (L) Hematocrit 42.0 - 54.0 % 31.6 (L) MCV 79.0 - 98.0 FL 97.8 MCH 27.0 - 32.0 pcg 31.9 MCHC 32.0 - 37.0 g/dL 32.6 RDW 11.0 - 15.0 % 13.7 Platelets 130 - 400 K/mcL 130 MPV 7.0 - 11.0 FL 10.7 NRBC <1.0 % 0.0 NRBC Absolute <0.10 K/mcL 0.00 Neutrophils Relative % 71.9 Lymphocytes Relative % 14.3 Monocytes Relative % 11.5 Eosinophils Relative % 1.5 Basophils Relative % 0.6 Immature Granulocytes Relative % 0.2 Neutrophils Absolute 1.50 - 7.00 K/mcL 3.38 Lymphocytes Absolute 1.00 - 5.00 K/mcL 0.67 (L) Monocytes Absolute 0.20 - 1.00 K/mcL 0.54 Eosinophils Absolute 0.00 - 0.50 K/mcL 0.07 Basophils Absolute 0.00 - 0.20 K/mcL 0.03 Immature Granulocytes Absolute 0.00 - 0.03 K/mcL 0.01 Labs are at [facility] baseline. Ambulatory EEG in July 2024: This is a 16 channel 48 hr EEG. Patient kept a diary and reported a seizure. Each day of EEG was separately reviewed and including wakefulness and sleep. Background EEG during wakefulness was symmetrical alpha posteriorly and lower amplitude faster anteriorly. Patient transitioned to normal stages of sleep during both days. No significant abnormality noted including during the time of notation. Cardiac rhythm was normal. Impression: No significant abnormality noted on this 48 hr EEG with patient reporting one seizure. Will refer back to Neurology for witnessed seizure activity. 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 10/08/2024 Urinary incontinence, post-void dribbling 2024 Overview (10/08/2024): Incontinence, Dribbling Dysuria 10/08/2024 Obstructive nephropathy 10/08/2024 Overview (10/08/2024): Obstruction Urinary frequency 10/08/2024 Overview (10/08/2024): Frequency Urinary urgency 10/08/2024 Depression, major, recurrent, mild ([facility] V24) 10/08/2024 Cardiac murmur 10/08/2024 Overview (10/08/2024): Murmur, Cardiac, Systolic First degree atrioventricular block 10/08/2024 Overview (10/08/2024): Block, Atrioventricular, First Degree Bradycardia 10/08/2024 Assessment & Plan (01/15/2025 2:40 PM EDT): Heart rate during visit was check and found to be 52 w/rhythm regular. Par is on Metoprolol succinate 25 mg PO QC and Lacosamide 150 mg PO BID (has heart rate lowering capabilities). Metoprolol Succinate was discontinued. Metoprolol Tartrate 12.5 mg PO BID ordered. Recommended Par check his BP and HR regularly and report any low readings: BP below 100 or above 150, HR below 60 or above 100, Par stated understanding and agreed with plan. Type 2 diabetes mellitus wit h stage 3b chronic kidney disease ([facility] V24, [facility] V28) 10/08/2024 Overview (10/08/2024): CKD 3b with DM2 / H/O Acute Kidney Injury ([facility]) (E11.22, N18.32) Cirrhosis of liver ([facility] V24, [facility] V28) Overview (10/08/2024): Cirrhosis, Liver with Portal Vein Hypertension Portal hypertension ([facility] V24, [facility] V28) 0 10/08/2024 Overview (10/08/2024): Cirrhosis, Liver with Portal Vein Hypertension Constipation 10/08/2024 Coronary artery disease 10/08/2024 Crohn's disease of small and large intestines ([facility] V24, [facility] V28) 10/08/2024 Degeneration of intervertebr al disc of lumbar region with discogenic back pain and lower extremity pain 10/08/2024 Overview (10/08/2024): Degenerative Joint Disease (DDD), Lumbar / Pain, Low Back (M51.362) Dehydration 10/08/2024 Dental caries 10/08/2024 Seborrhea capitis 10/08/2024 Type 2 diabetes mellitus wit h hyperglycemia ([facility] V24, [facility] V28) 10/08/2024 Overview (10/08/2024): DM 2 with Chronic Complications / Hyperglycemia/Hypoglycemia Diabetic hypoglycemia ([facility] V24, [facility] V28) 10/08/2024 Overview (10/08/2024): DM 2 with Chronic Complications / Hyperglycemia/Hypoglycemia Dry mouth 10/08/2024 Gait disorder 10/08/2024 Gastric ulcer 10/08/2024 Overview (10/08/2024): Gastric Ulcer Disease with Atypical Chest Pain Hernia, ventral 10/08/2024 Overview (10/08/2024): Hernia, Ventral, Midline Abdomninal Sensory hearing loss, bilateral 10/08/2024 Overview (10/08/2024): Hearing Loss, Sensorineural, Bilateral Hypertensive heart and kidne y disease with heart and renal failure ([facility] V24, [facility] V28) 10/08/2024 Overview (10/08/2024): Hypertension with CHF & CKD (I13.0) Hypokalemia 10/08/2024 Hypomagnesemia 10/08/2024 Hyponatremia 10/08/2024 Obesity, class 2 10/08/2024 Osteoarthritis of left hip 10/08/2024 Sacroiliitis ([facility] V24) 10/08/2024 Overview (10/08/2024): Bilateral Sacroiliac Joints Osteoarthritis of both shoulders 10/08/2024 Overview (10/08/2024): Bilateral Acromioclavicular Joints / Chronic Pain Osteoarthritis of right knee 10/08/2024 Overview (10/08/2024): Osteoarthritis, Right Knee / Pain, Right Knee (M17.11) Abdominal pain, left lower quadrant 10/08/2024 DM (diabetes mellitus) with peripheral vascular complication ([facility] V24, [facility] V28) 10/08/2024 Overview (10/08/2024): Peripheral Vascular Disease due to DM Assessment & Plan (01/15/2025 2:37 PM EDT): FreeStyle Julito for today: 01/15/25: 194 am, 258 later am, 195 pm; 7 day average 231, 14 day average 219. Last A1C 12/25/2024 8.5%; A1C one year ago: 01/10/24 6.8%. Parker is on Trulicity 4.5 mg SC every 7 days, Lantus Basal Insulin 25 units SC daily in the am. Instructed Par to contact ML with any concerns for low blood glucose, do not take oral glucose prescription medication for a reading in the 80's or low 70's, instead have a glass of orange juice and some crackers and notify this provider; Provider's work cell phone number provided. Discussed that medication changes can be made to avoid dangerously low readings. Par stated understanding and agreed with plan. Stasis edema of both lower extremities Overview (10/08/2024): Edema, Bilateral Lower Extremities Onychomycosis 10/08/2024 Onychodystrophy 10/08/2024 Candidiasis of skin and nails 10/08/2024 Overview (10/08/2024): B37.2 Hammertoe, bilateral 10/08/2024 Hallux valgus, acquired, bilateral 10/08/2024 Complex partial epilepsy ([facility] V24, [facility] V 28) 10/08/2024 Overview (10/08/2024): Seizures, Complex Partial (G40.209) Assessment & Plan (03/05/2025 1:56 PM EDT): He has an appt with [facility] coming up on 03/11/25. Given his CKD -4, Concha has to be renally dosed. Will await neurology recommendations. Assessment & Plan (12/25/2024 3:42 PM EDT): Witnessed seizure activity in [employer] [place] today 12/25/2024 lasting between 5 to 10 minutes. Post seizure Par c/o posterior neck pain, ice, then heat applied. VSS. Parker rested in clinic exam bed, labs CBCD, CMP, A1C sent out to lab, lunch brought to him which he finished. [employer] reached out to his Neurologist's office to move his appointment up. Par has f/u Neurology appointment tomorrow. Disorder of intervertebral d isc at C5-C6 level with radiculopathy 10/08/2024 Overview (10/08/2024): Stenosis, Cervical (C5-C6), Central Canal with Radiculopathy Assessment & Plan (02/19/2025 1:21 PM EDT): Adjacent joint disease s/p ACDF C5-C6. Par states his symptoms are manageable at this time with neck pain with movement or jostling from bumpy road while riding in an automobile to include occasional paresthesia in both arms. Plan: Systemic steroid therapy to be held and utilized if needed as well, referral to Neurology held for now at Par's request. Recommended he utilize intermittent heat therapy and topical pain rub to area, report any worsening of symptoms to [facility] clinic. Par stated understanding and agreed with plan. Cervicalgia 10/08/2024 Assessment & Plan (12/25/2024 3:45 PM EDT): Post seizure par c/o posterior neck pain that was an aching pain that did not radiate anywhere, rated his pain at a 2-3/10. Par provided with muscle rub cream and instructed to wash hand after applying to prevent getting in MM or eyes. Transaminitis 10/08/2024 Tremor, essential 10/08/2024 Assessment & Plan (11/13/2024 2:00 PM EDT): Tremors: Decreasing Primidone to 25 mg PO QD from 50 mg d/t known possible side effects of fatigue, shakiness, unsteadiness ambulating, trembling and low back pain, Neurology f/u pending Bilateral keratoconjunctivitis sicca 10/08/2024 Overview (10/08/2024): Keratoconjunctivitis Sicca, Not Specified as Sjogren's OU Meibomian gland dysfunction (MGD) of both eyes 0 10/08/2024 Overview (10/08/2024): Dysfunction, Gland, Meibomian OU Mild nonproliferative diabet ic retinopathy of both eyes associated with type 2 diabetes mellitus ([facility] V24, [facility] V28) 10/08/2024 Overview (10/08/2024): Retinopathy, Non-proliferative, Mild due to DM 2 OU & Hypertension OD Arcus senilis, bilateral 10/08/2024 Overview (10/08/2024): Corneal Arcus, OU Dermatochalasis of upper and lower eyelids of los th eyes 10/08/2024 Astigmatism, bilateral 10/08/2024 Pinguecula, bilateral 10/08/2024 Hypertensive retinopathy of right eye 10/08/2024 Overview (10/08/2024): H35.031 Posterior capsular opacification, both eyes 09/22 Hypercholesterolemia 10/08/2024 Chronic venous insufficiency 10/08/2024 Stenosis, cervical spine 10/08/2024 Overview (10/08/2024): (C5-C6), Central Canal with Radiculopathy History of Helicobacter pylori infection 024 Hx of intestinal obstruction 10/13/2023 Hx of syncope 10/13/2023 History of colon polyps 10/13/2023 Regional enteritis ([facility] V24, [facility] V28) ACS (acute coronary syndrome) ([facility] V24, [facility] V28) 09/26/2023 Unstable angina ([facility] V24, [facility] V28) 09/26 Coronary artery disease of n ative heart with stable angina pectoris ([facility] V24) 05/24/2022 Iron deficiency anemia due to chronic blood loss 05/24/2022 Thoracic aortic aneurysm ([facility] V24) Shortness of breath on exertion 11/10/2021 Overview (10/13/2023): Last Assessment & Plan: As I note he is getting more short of breath with exertion. I do think some of this may be from diastolic heart failure. Not clear if he could develop some stenosis of the aortic valve and I do think that will need to be evaluated. However I am concerned that this is also ischemic mediated. He did have a nuclear stress test He was found to have medium size moderate anterior lateral perfusion defect with reversibility. I do think he needs to have a cardiac catheterization however I think prior to this he would need to have a colonoscopy given the fact that he states he is have blood and black stool. Other chest pain 06/11/2021 Overview (10/13/2023): Last Assessment & Plan: He continues to have chest pain which does sound atypical in nature. This occurs with rest and exertion. He is a [employer] patient. I recommend starting isosorbide mononitrate 30 mg daily which I have also done this at previous office visits. I also recommended a diagnostic left heart cardiac catheterization on a previous visit. Dr. Leonard did recommend this as well at his last office visit. There was some concern for dark tarry stools and a colonoscopy was recommended which also has not yet been done. The patient does state this has resolved. Again, I would recommend starting Imdur 30 mg daily and have him undergo a diagnostic left heart cardiac catheterization. Again, this is in light of a positive stress test and continued symptoms. I will try to reach out to [employer] whether or not we can proceed with the procedure. Apparently the PCP who has been following is no longer with the organization. For now he will continue aspirin, furosemide, losartan, metoprolol, and high intensity statin therapy. Claudication ([facility] V24) 03/05/2021 COPD (chronic obstructive pu lmonary disease) ([facility] V24, [facility] V28) 03/05/2021 Assessment & Plan (10/16/2024 2:53 PM EST): Diabetic neuropathy ([facility] V24, [facility] V28) 0 03/05/2021 Hearing loss 03/05/2021 Peripheral vascular disease ([facility] V24) 2020 Type 2 diabetes mellitus ([facility] V24, [facility] V 28) 03/05/2021 Diabetic retinopathy ([facility] V24, [facility] V28) 03/05/2021 Vitamin B12 deficiency 03/05/2021 Diastolic heart failure ([facility] V24, [facility] V2 8) 09/11/2020 Overview (10/13/2023): Last Assessment & Plan: Volume status appears acceptable. Continue current dose of Lasix. Would recommend that he call his PCP at [facility] for weight gain of more than 3 pounds in 1 day or 5 pounds in 1 week. Low-salt diet encouraged. Lesion of external ear, left 09/02/2020 Crohn's disease ([facility] V24, [facility] V28) 02/28 GERD (gastroesophageal reflux disease) 8 Assessment & Plan (11/13/2024 2:01 PM EDT): GERD: Decreased Pantoprazole to 40 mg PO QD from BID for decrease in symptoms, GI f/u pending. Anxiety 06/22/2017 CHF (congestive heart failure) ([facility] V24, [facility] V28) 06/22/2017 Overview (10/13/2023): Last Assessment & Plan: Patient does have history of chronic diastolic heart failure is in the hospital he is weight was up by 10 pounds. Since he has been on the higher dose of the diuretic he is lost about 10 pounds. His breathing is doing better. I did give him a slip to repeat his blood work. Assessment & Plan (10/16/2024 2:53 PM EST): Cognitive impairment 06/22/2017 Coronary atherosclerosis 06/22/2017 Assessment & Plan (10/16/2024 2:53 PM EST): DJD (degenerative joint disease) 06/22/2017 Fatty liver 06/22/2017 Obstructive sleep apnea 06/22/2017 Overview (10/13/2023): CPAP Allergic rhinitis 11/10/2013 Hyperlipidemia 05/10/2013 Overview (10/13/2023): Last Assessment & Plan: No recent lipid panel. Managed by [employer]. Continue statin therapy. Assessment & Plan (10/16/2024 2:53 PM EST): Hypertension 05/10/2013 Overview (10/13/2023): Last Assessment & Plan: 130/52 in office today, well-controlled. Continue regimen as above. Recommendations as above. Assessment & Plan (11/13/2024 2:01 PM EDT): Hypertension: Restarted Amlodipine 5mg PO QD for elevated BP. Assessment & Plan (10/16/2024 2:53 PM EST): History of aortic valve replacement 05/09/2013 Overview (10/13/2023): Last Assessment & Plan: History of bioprosthetic aortic valve replacement in 2003. Normal sounding aortic valve on exam. Stable on most recent echo. Assessment & Plan (10/16/2024 2:53 PM EST): Type 2 diabetes mellitus wit h eye manifestations ([facility] V24, [facility] V28) 05/09/2013 Bipolar 1 disorder ([facility] V24, [facility] V28) Karen's thyroiditis 01/17/2013 Vitamin D deficiency 11/06/2012 Internal hemorrhoids 05/17/2012 Resolved Problems Problem Noted Date Diagnosed Date Resolved Date Paroxysmal atrial fibrillati on ([facility] V24, [facility] V28) 11/06/2024 11/13/2024 Colostomy status ([facility] V24, [facility] V28) 01/17/2013 11/13/2024 Encounters Date Type Department Care Team Description 03/11/2025 1:20 PM EDT PACE External Visit [address] [phone] Seizure ([facility] V24, [facility] V28); Nonintractable epileptic spasms without status epilepticus ([facility] V24, [facility] V28) 03/07/[address] [phone] Chelita Hall RN 03/06/2025 8:00 AM EDT PACE External Visit [address] [phone] 03/05/2025 1:15 PM EDT Office Visit [address] [phone] Nicolasa Hawkins MD Complex partial epilepsy ([facility] V24, [facility] V28) (Primary Dx); Herpes zoster ophthalmicus; Chronic kidney disease, stage 4 (severe) ([facility] V24, [facility] V28) 03/05/2025 12:45 PM EDT Clinical Support [address] [phone] Cady Beyer RN 03/05/2025 11:15 AM EDT [address] Assessment [facility] Physical Therapy [address] [place] [phone] Farhan Koehler PT Gait disorder (Primary Dx) 03/05/2025 10:00 AM EDT Clinical Support [address] [phone] Chelita Hall RN Diabetic polyneuropathy associated with type 2 diabetes mellitus ([facility] V24, [facility] V28) (Primary Dx) 03/04/2025 11:30 AM EDT PACE Home Care / PACE Home Visit [facility] [address] [place] [phone] Ward Doe 03/04/[address] [phone] Chelita Hall RN 02/27/2025 8:00 AM EDT [facility] [address] [phone] Astigmatism of both eyes, unspecified type 02/26/2025 12:00 PM EDT Office Visit [facility] Clinic [address] [place] [phone] Todd Laurent NP Primary hypertension (Primary Dx); Congestive heart failure, unspecified HF chronicity, unspecified heart failure type ([facility] V24, [facility] V28); Anemia due to stage 3b chronic kidney disease ([facility] V24, [facility] V28); Iron deficiency anemia due to chronic blood loss; Seizure ([facility] V24, [facility] V28); Nonintractable epileptic spasms without status epilepticus ([facility] V24, [facility] V28) 02/26/2025 10:00 AM EDT P[facility] Assessment [facility] Occupational Therapy [address] [place] [phone] Osmany Bañuelos OT ACS (acute coronary syndrome) ([facility] V24, [facility] V28) (Primary Dx) 02/26/2025 9:00 AM EDT [facility] [address] [phone] Onychomycosis 02/25/2025 11:30 AM EDT [facility]ACE [facility] In Home Nursing and Aide Services [address] [place] [phone] Ward Doe 02/21/[address] [facility] Social Work [address] [place] [phone] Lorraine Hi LICSW 02/19/2025 1:20 PM EDT [facility] [address] [phone] Herpes zoster ophthalmicus of left eye 02/19/2025 12:00 PM EDT Office Visit [address] [phone] Todd Laurent, ALICIA Chronic diastolic heart failure ([facility] V24, [facility] V28) (Primary Dx); Primary hypertension; Type 2 diabetes mellitus with hyperglycemia, with long-term current use of insulin ([facility] V24, [facility] V28); Herpes zoster ophthalmicus; Disorder of intervertebral disc at C5-C6 level with radiculopathy 02/19/2025 9:45 AM EDT Clinical Support [address] [phone] Veronica Parsons RN 02/18/2025 11:30 AM EDT PACE Home Care / PACE Home Visit [facility] [address] [place] [phone] Ward Doe 02/12/2025 1:00 PM EDT Office Visit [address] [phone] Todd Laurent NP Herpes zoster ophthalmicus (Primary Dx) 02/11/2025 11:30 AM EDT PACE Home Care / PACE Home Visit [facility] [address] [place] [phone] Ward Doe 02/08/[address] [phone] Cady Beyer, cake decorator 02/07/[address] [phone] Chelita Hall RN Medication (Call to check if he received his meds, he did receive the medications yesterday. He also stated he is getting alerts to schedule an ophthalmology appt. I asked his, I asked him to call me back with the phone number.) 02/05/2025 4:51 PM EDT - 02/05/2025 8:31 PM EDT Emergency [facility] Emergency [address] [place] [phone] Luis Florez MD Herpes zoster with complication (Primary Dx); Corneal inflammation, left Discharge Disposition: Home or Self Care 02/05/2025 12:00 PM EDT Office Visit [address] [phone] Todd Laurent, ALICIA Herpes zoster ophthalmicus (Primary Dx) 02/05/2025 10:00 AM EDT Clinical Support [address] [phone] Shena Pichardo, MATTRESS WEAVER Type 2 diabetes mellitus with stage 3b chronic kidney disease, unspecified whether manager long term care insulin use ([facility] V24, [facility] V28) (Primary Dx) 02/05/2025 PACE Admissions [address] [phone] Mesha Kilgore RN Herpes zoster with complication (Primary Dx); Corneal inflammation, left 02/04/2025 11:30 AM EDT PACE Home Care / PACE Home Visit [facility] [address] [place] [phone] Ward Doe 01/29/2025 3:15 PM EDT Clinical Support [address] [phone] Cady Beyer, ANNALEE 01/29/[address] [facility] Social Work [address] [place] [phone] Lorraine Hi LICSW 01/28/2025 11:30 AM EDT PACE Home Care / PACE Home Visit [facility] [address] [place] [phone] Ward Doe 01/22/2025 9:45 AM EDT Clinical Support [address] [phone] Veronica Parsons, ANNALEE 01/22/[address] [facility] Social Work [address] [place] [phone] Letitia Jaimes LSW 01/21/2025 1:30 PM EDT Clinical Support Mariaa HOLLOWAY MA PACE [address] [phone] Cady Beyer, ANNALEE Bradycardia (Primary Dx) 01/21/2025 11:30 AM EDT PACE Home Care / PACE Home Visit Mariaa HOLLOWAY MA In Home Nursing and Aide Services [address] [place] [phone] Ward Doe 01/15/2025 1:00 PM EDT Office Visit Mariaa HOLLOWAY MA [address] [phone] Todd Laurent NP Bradycardia (Primary Dx); DM (diabetes mellitus) with peripheral vascular complication (CMS/HCC V24, CMS/HCC V28) 01/15/2025 9:45 AM EDT Clinical Support Mariaa HOLLOWAY MA [address] [phone] Veronica Parsons, ANNALEE 01/14/2025 11:30 AM EDT PACE Home Care / PACE Home Visit Mariaa OHLLOWAY [place] In [facility] [address] [place] [phone] Ward Doe 01/11/2025 2:20 PM EDT - 01/12/2025 1:49 AM EDT Emergency [facility] Emergency [address] [place] [address] Hyperglycemia (Primary Dx) Discharge Disposition: Home or Self Care 01/04/2025 Health Home Core Service Mariaa HOLLOWAY MA In Home [facility] Services [address] [place] [phone] Sadia Morales PCA 01/03/2025 Plan of Care Documentation Mariaa HOLLOWAY MA [facility] [address] [place] [phone] 01/03/2025 Health Home Core Service Mariaa HOLLOWAY MA [facility] [address] [place] [phone] Sadia Morales, EDUCATIONAL AID 01/03/[address] [facility] [address] [place] [address] CarmenSadia montano, EDUCATIONAL AID 01/03/2025 PACE Admissions [address] [phone] Mesha Kilgore RN Seizure ([facility] V24, [facility] V28) (Primary Dx) 01/02/2025 1:40 PM EDT - 01/08/2025 4:58 PM EDT Hospital Encounter [facility] [address] [place] [address] Keith Ordonez MD Maduakor, Emmanuel C, MD Japaridze, Anna, MD Nasser, Giovanny Khanna MD Seizure ([facility] V24, [facility] V28) (Primary Dx); Pancytopenia ([facility] V24, [facility] V28); Portal hypertension ([facility] V24, [facility] V28); Sacroiliitis ([facility] V24); Partial idiopathic epilepsy with seizures of localized onset, not intractable, without status epilepticus ([facility] V24, [facility] V28) Discharge Disposition: [place] [facility] 01/01/2025 11:45 AM EDT Clinical Support [address] [phone] Veronica Parsons, ANNALEE 01/01/[address] [facility] Social Work [address] [place] [phone] Letitia Jaimes LSW 01/01/2025 Health Home Core Service [address] [phone] Cris Mcgee RN 12/31/2024 10:27 AM EDT - 12/31/2024 4:46 PM EDT Emergency [facility] Emergency [address] [place] [phone] Romero Watson MD Chest pain, unspecified type (Primary Dx) Discharge Disposition: Home or Self Care 12/31/2024 PACE Admissions [address] [phone] Mesha Kilgore, ANNALEE Chest pain, unspecified type (Primary Dx) 12/31/[address] [facility] [address] [place] [phone] Sadia Morales, ROBERT 12/28/2024 10:00 AM EDT Clinical Support [address] [phone] Cady Beyer, ANNALEE Seizures ([facility] V24, [facility] V28) (Primary Dx) 12/27/2024 9:39 AM EDT - 12/27/2024 3:23 PM EDT Emergency [facility] Emergency [address] [place] [phone] Ricky Andrea DO Seizure ([facility] V24, [facility] V28) (Primary Dx) Discharge Disposition: Home or Self Care 12/27/2024 PACE Admissions [address] [phone] Mesha Kilgore, RN Seizures ([facility] V24, [facility] V28) (Primary Dx) 12/26/2024 1:10 PM EDT PACE External Visit [address] [phone] Nonintractable epilepsy without status epilepticus, unspecified epilepsy type ([facility] V24, [facility] V28) 12/25/2024 12:00 PM EDT Office Visit [address] [phone] Todd Laurent, ALICIA Complex partial epilepsy ([facility] V24, [facility] V28) (Primary Dx); Cervicalgia 12/25/2024 10:30 AM EDT Clinical Support [facility] [address] [place] [phone] Elana Patel, ANNALEE 12/24/2024 2:45 PM EDT PACE Home Care / PACE Home Visit Mariaa [facility] [address] [place] [phone] Khushbu Mosquera 12/20/2024 10:00 AM EDT Clinical Support [place]a [facility] [place] PACE [address] [phone] Lolis Chen RN 12/18/2024 12:00 PM EDT [facility] [place] [facility] [address] [phone] Todd Laurent, ALICIA Partial idiopathic epilepsy with seizures of localized onset, not intractable, without status epilepticus (CMS/HCC V24, CMS/HCC V28) (Primary Dx) 12/18/2024 11:15 AM EDT Treatment Mariaa HOLLOWAY [place] Occupational Therapy [address] [place] [phone] Osmany Bañuelos, SAMARA 12/18/2024 9:45 AM EDT Clinical Support [place]a [place] [place] PACE [address] [phone] Veronica Parsons RN 12/18/2024 Telephone Gastroenterology - [place] [facility] 175 [facility] [address] [place] [phone] Camila Eduardo LPN rinvoq 12/17/2024 2:00 PM EDT Treatment Mariaa HOLLOWAY [place] Occupational Therapy [address] [place] [phone] Osmany Bañuelos, OT 12/17/2024 11:30 AM EDT PACE Home Care / PACE Home Visit Mariaa [facility] [address] [place] [phone] Ward Doe 12/15/2024 PACE On-Call [facility] [place] [facility] Clinic [address] [place] [phone] Nicolasa Hawkins MD Type 2 diabetes mellitus with other specified complication, with long-term current use of insulin ([facility] V24, [facility] V28) (Primary Dx); Type 2 diabetes mellitus with hyperglycemia, with long-term current use of insulin ([facility] V24, [facility] V28) 12/15/2024 PACE On-Call [address] [phone] Todd Laurent NP 12/11/2024 11:20 AM EDT - 12/14/2024 4:03 PM EDT Hospital Encounter [facility] [address] [place] [phone] Romero Watson MD Bukalo, Nermina, MD Rasul, Yar M, MD Seizure ([facility] V24, [facility] V28) (Primary Dx) Discharge Disposition: Home-Health Care Svc 12/11/2024 PACE Admissions [address] [phone] Mesha Kilgore RN Convulsions, unspecified convulsion type ([facility] V24, [facility] V28) (Primary Dx); Nonintractable epilepsy without status epilepticus, unspecified epilepsy type ([facility] V24, [facility] V28) 12/10/2024 11:30 AM EDT PACE Home Care / DRIFT Home Visit [facility] [address] [place] [phone] Ward Doe from Last 3 Months Immunizations Name Administration Dates Next Due Hepatitis A Adult (Havrix; V aqta) 19yo and older 07/27/2018 Hepatitis B (Wulpmcc-K-Kwmyt , Recombivax HB-Adult) 19yo and older 06/27/2018 Influenza trivalent, with pr eservative (Fluzone; Afluria) 6mo and older 05/19/2020 Influenza, Unspecified 05/24/2024 Pfizer SARS-CoV-2 COVID-19, mRNA, LNP-S, preservative free 07/08/2022,09/28/2020,09/07/2020 Pneumococcal conjugate 13 va lent (Prevnar 13, PCV13) 2mo and older 10/12/2016 Pneumococcal polysaccharide 23 valent (Pneumovax 23) 2yo and older 06/22/2008 Tdap Tetanus diptheria acell ular pertussis (Boostrix; Adacel) 7yo and older 09/20/2024 Surgical History Surgery Date Site/Laterality Comments OTHER SURGICAL HISTORY 05/11/2014 PROCEDURE: AK COLECTOMY PARTIAL W/ANASTOMOSIS APPENDECTOMY 08/30/1983 PROCEDURE: HISTORICAL APPENDECTOMY NECK SURGERY PROCEDURE: HISTORICAL NECK SURGERY; COMMENT: open cervical vertebral body dislocation COLONOSCOPY 10/31/2017 PROCEDURE: HISTORICAL COLONOSCOPY APPENDECTOMY PROCEDURE: AK APPENDECTOMY TONSILLECTOMY 09/09/1956 PROCEDURE: HISTORICAL TONSILLECTOMY; COMMENT: and adenoidectomy CATARACT EXTRACTION 01/2020 Bilateral PROCEDURE: HISTORICAL CATARACT REMOVAL AORTIC VALVE REPLACEMENT 2003 PROCEDURE: HISTORICAL AORTIC VALVE REPL; COMMENT: Bicuspid OTHER SURGICAL HISTORY PROCEDURE: AK UNLISTED PROCEDURE SPINE; COMMENT: Cervical spinal fusion OTHER SURGICAL HISTORY PROCEDURE: SKIN EXCISION; COMMENT: Skin excision of squamous cell cancer Medical History Medical History Date Comments Allergic rhinitis 11/10/2013 DX:Allergic rh initis Anxiety 06/22/2017 DX:Anxiety Bipolar 1 disorder ([facility] V24, [facility] V28) 01/17/2013 DX:Bipolar 1 disorder ([facility]) CHF (congestive heart failur e) ([facility] V24, [facility] V28) 06/22/2017 DX:CHF (congestive heart fa ilure) ([facility]) Cognitive impairment 06/22/2017 DX:Cognitiv e impairment Colostomy status ([facility] V2 4, [facility] V28) 01/17/2013 DX:Colostomy status ([facility]) Coronary atherosclerosis 06/22/2017 DX:Herman nary atherosclerosis DJD (degenerative joint disease) 06/22/2017 DX:DJD (degenerative joint disease) Fatty liver 06/22/2017 DX:Fatty liver Karen's thyroiditis 01/17/2013 DX:Shayla fiona's thyroiditis History of Helicobacter pylo ri infection 11/17/2017 DX:History of Helicobacter p ylori infection History of intestinal obstruction 06/22/2012 DX:History of intestinal obstruction History of syncope 06/22/2017 DX:History of syncope Hyperlipidemia 05/10/2013 DX:Hyperlipidemi a Hypertension 05/10/2013 DX:Hypertension Internal hemorrhoids 05/17/2012 DX:Internal hemorrhoids Morbid obesity with BMI of 4 0.0-44.9, adult ([facility] V24, [facility] V28) 06/22/2017 DX:Morbid obesity wit h BMI of 40.0-44.9, adult ([facility]) Obstructive sleep apnea 06/22/2017 DX:Obstr uctive sleep apnea Regional enteritis ([facility] V24, [facility] V28) 02/28/2018 DX:Regional enteritis ([facility]) S/P aortic valve replacement 05/09/2013 DX: S/P aortic valve replacement Vitamin D deficiency 11/06/2012 DX:Vitamin D deficiency Crohn's disease ([facility] V24 , [facility] V28) 03/05/2021 DX:Crohn's disease ([facility]) Iron deficiency anemia 03/05/2021 DX:Iron d eficiency anemia COPD (chronic obstructive pu lmonary disease) ([facility] V24, [facility] V28) 03/05/2021 DX:COPD (chronic o bstructive pulmonary disease) ([facility]) GERD (gastroesophageal reflu x disease) 02/28/2018 DX:GERD (gastroesophageal re flux disease) Hearing loss 03/05/2021 DX:Hearing loss Diabetic neuropathy ([facility] V24, [facility] V28) 03/05/2021 DX:Diabetic neuropathy ([facility]) Type 2 diabetes mellitus wit h neurological complications ([facility] V24, [facility] V28) 03/05/2021 DX:Type 2 diabetes mellitus with neurological complications ([facility]) Peripheral vascular disease ([facility] V24) 03/05/2021 DX:Peripheral vascular disea se ([facility]) Type 2 diabetes mellitus wit h vascular disease ([facility] V24, [facility] V28) 03/05/2021 DX:Type 2 diabetes mellitus with vascular disease ([facility]) Vitamin B12 deficiency 03/05/2021 DX:Vitami n B12 deficiency Diabetic retinopathy ([facility] V24, [facility] V28) 03/05/2021 DX:Diabetic retinopathy ([facility] ) Type 2 diabetes mellitus wit h eye manifestations ([facility] V24, [facility] V28) 05/09/2013 DX:Type 2 diabetes mellitus with eye manifestations ([facility]) Claudication ([facility] V24) 03/05/2021 DX:Cl audication (HCC) Chest pain DX:Chest pain Acute renal insufficiency DX:Acu te renal insufficiency SIRISHA on CPAP DX:SIRISHA on CPAP Adhd DX:ADHD Dyslexia DX:Dyslexia History of squamous cell carcinoma DX:History of squamous cell carcinoma History of abdominal surgery DX: History of abdominal surgery History of UTI DX:History of UT I History of urinary calculi History of smoking History of adenomatous polyp of colon Wears dentures History of basal cell carcin tian (BCC) of skin DX: H/O Carcinoma, Basal Linda l, Right Face History of falling Wears hearing aid Status post cataract extract ion of both eyes with insertion of intraocular lens Seizure ([facility] V24, [facility] V28) 11/06/2024 Seizure observed by this provider in the clinic. Fasciculations of participants face, bilateral arms that lasted about 15 to 20 seconds. Par was brought to the clinic from [facility]: PIV start after Par agreed, IVNS infused over two hours for a total of 300ml. STAT labs sent to [facility] returned: Component Latest Ref Rng 11/06/2024 Sodium 133 - 145 mmol/L 135 [place] Family History Medical History Relation Name Comments Stroke Father Diabetes Mother Heart attack Mother Other: AVR Mother bicuspid Coronary artery disease Other Relation Name Status Comments Father Mother Other Social History Tobacco Use Types Packs/Day Years Used Date Smoking Tobacco: Former Smokeless Tobacco: Never Tobacco Cessation:Counseling Given: Not Answered Comments:Smoking Status: Ex-smoker Tobacco use: Former Smoker Packs per day : 3 Calculated quantity/packs per year: 1095 Alcohol Use Standard Drinks/Week Comments Yes 0 (1 standard drink = 0.6 oz pur e alcohol) rarely Interpersonal Safety Answer Date Record ed Physical Abuse 01/03/2025 Verbal Abuse 01/03/2025 Sex and Gender Information Value Date Recorded Sex Assigned at Male 12/27/2024 10:08 AM EDT Legal Sex Male 1:01 AM EST Gender Identity Male 12/27/2024 10:08 AM EDT Sexual Orientation Straight 12/27/2024 10 :08 AM EDT Obstetrics History Last Filed Vital Signs Vital Sign Reading Time Taken Comments Blood Pressure 128/60 03/05/2025 1:35 PM EDT Pulse 61 03/05/2025 1:35 PM EDT Temperature 36.2 C (97.1 F) 03/05/2025 1:35 PM EDT Respiratory Rate 18 03/05/2025 12:05 PM EDT Oxygen Saturation 98% 03/05/2025 1:35 PM EDT RA Inhaled Oxygen Concentration - - Weight 99.8 kg (220 lb) 03/05/2025 1:35 PM EDT Height 175.3 cm (5' 9 ) 02/05/2025 1:31 PM EDT Body Mass Index 32.49 02/05/2025 1:31 PM EDT Plan of Treatment Upcoming Encounters Date Type Department Care Team (Late st Contact Info) Description 03/12/2025 8:30 AM EDT PACE Attendance/[place] [facility] [address] [place] [phone] 03/18/2025 11:30 AM EDT PACE Home Care / PACE Home Visit Mariaa [facility] In Home Nursing and Aide Services [address] [place] [phone] Ward Doe 03/19/2025 8:30 AM EDT PACE Attendance/Day Center Mariaa HOLLOWAY [facility] Day Center [address] [place] [phone] 03/19/2025 9:45 AM EDT Clinical Support Mariaa HOLLOWAY [address] [phone] Chelita Hall RN 03/19/2025 10:00 AM EDT [facility] [address] [phone] Todd Laurent NP [address] [place] [phone] 03/19/2025 10:00 AM EDT PACE Assessment Mariaa [facility] PACE [address] [phone] Chelita Hall RN 03/21/2025 2:20 PM EDT Clinical Support Mariaa [address] [phone] 03/22/2025 2:10 PM EDT Office Visit Gastroenterology - [place] [address] [place] [phone] Loan Garcia MD [address] [place] [address] 03/25/2025 11:30 AM EDT PACE Home Care / PACE Home Visit Mariaa [facility] [place] [facility] [address] [place] [phone] Ward Doe 03/26/2025 8:30 AM EDT PACE Attendance/[place] [facility] Day Center [address] [place] [phone] 04/01/2025 11:30 AM EDT PACE Home Care / PACE Home Visit Mariaa [facility] [place] [facility] [address] [place] [phone] Ward Doe 04/02/2025 8:30 AM EDT PACE Attendance/Day [place] Day Center [address] [place] [phone] 04/02/2025 9:45 AM EDT Clinical Support [facility] [place] [facility] Clinic [address] [place] [phone] Chelita Hall RN 04/08/2025 11:30 AM EDT PACE Home Care / PACE Home Visit Mariaa [facility] [place] [facility] [address] [place] [phone] Wrad Doe 04/09/2025 8:30 AM EDT PACE Attendance/[place] [facility] Day Center [address] [place] [phone] 04/15/2025 11:30 AM EDT PACE Home Care / PACE Home Visit Mariaa [facility] [place] [facility] [address] [place] [phone] Ward Doe 04/16/2025 8:30 AM EDT PACE Attendance/[place] [facility] Day Center [address] [place] [phone] 04/16/2025 9:45 AM EDT Clinical Support [facility] [place] [facility] Clinic [address] [place] [phone] Chelita Hall RN 04/16/2025 10:00 AM EDT PACE External Visit Mariaa HOLLOWAY [address] [phone] 04/16/2025 2:00 PM EDT PACE External Visit Mariaa HOLLOWAY [place] [address] [place] [phone] 04/22/2025 11:30 AM EDT PACE Home Care / PACE Home Visit Mariaa [facility] [place] [facility] [address] [place] [phone] Ward Doe 04/23/2025 8:30 AM EDT PACE Attendance/[place] Day Center [address] [place] [phone] 04/25/2025 1:10 PM EDT Office Visit [facility] [address] [place] [phone] Choco Hong NP [address] [place] [address] [address] [place] [address] 04/29/2025 11:30 AM EDT PACE Home Care / PACE Home Visit Mariaa [facility] [place] [facility] [address] [place] [phone] Ward Doe 04/30/2025 8:30 AM EDT PACE Attendance/[place] [facility] Day Center [address] [place] [phone] 04/30/2025 9:45 AM EDT Clinical Support [facility] [place] [facility] Clinic [address] [place] [phone] Chelita Hall RN 05/06/2025 11:30 AM EDT PACE Home Care / PACE Home Visit Mariaa [facility] [place] [facility] [address] [place] [phone] Ward Doe 05/07/2025 8:30 AM EDT [facility] [place] [facility] [address] [place] [phone] 05/14/2025 8:30 AM EDT PACE Attendance/Day [place] Day Center [address] [place] [phone] 05/14/2025 9:45 AM EDT Clinical Support [place] [facility] [facility] Clinic [address] [place] [phone] Chelita Hall RN 05/21/2025 8:30 AM EDT PACE [facility] [place] [facility] [address] [place] [phone] 05/28/2025 8:30 AM EDT PACE Attendance/Day [place] Day Center [address] [place] [phone] 05/28/2025 9:45 AM EDT Clinical Support [place] [facility] [facility] Clinic [address] [place] [phone] Chelita Hall RN 06/04/2025 8:30 AM EDT [facility] Att[facility]ance[facility] [place] [facility] [address] [place] [phone] 06/04/2025 11:00 AM EDT PACE External Visit [facility] [address] [phone] 06/11/2025 8:30 AM EDT P[facility] Attendance[facility] [facility] [place] [facility] [address] [place] [phone] 06/11/2025 9:45 AM EDT Clinical Support [facility] [place] [facility] [address] [place] [address] [place] [phone] Chelita Hall RN 06/18/2025 8:30 AM EDT P[facility] Attendance[facility] [place] [facility] [address] [place] [phone] 06/25/2025 8:30 AM EST [facility] [place] [facility] [address] [place] [phone] 06/25/2025 9:45 AM EST Clinical Support [facility] [place] [facility] [address] [place] [phone] Chelita Hall RN 07/02/2025 8:30 AM EST [facility] [place] [facility] [address] [place] [phone] 07/04/2025 11:00 AM EST Clinical Support [facility] [address] [place] [phone] 07/09/2025 8:30 AM EST [facility] [place] [facility] [address] [place] [phone] 07/09/2025 9:45 AM EST Clinical Support [facility] [place] [facility] [address] [place] [phone] Chelita Hall RN 07/09/2025 11:20 AM EST Clinical Support [facility] [address] [place] [phone] 07/16/2025 8:30 AM EST [facility] Attendance[facility] [facility] [place] [facility] [address] [place] [phone] 07/23/2025 8:30 AM EST [facility] [place] [facility] [address] [place] [phone] 07/23/2025 9:45 AM EST Clinical Support [facility] [place] [facility] [address] [place] [phone] Chelita Hall RN 07/30/2025 8:30 AM EST [facility] [place] [facility] [address] [place] [phone] 08/06/2025 8:30 AM EST [facility] [place] [facility] [address] [place] [phone] 08/06/2025 9:45 AM EST Clinical Support [facility] [place] [facility] [address] [place] [phone] Chelita Hall RN 08/13/2025 8:30 AM EST [facility] [place] [facility] [address] [place] [phone] 08/20/2025 8:30 AM EST [facility] [place] [facility] [address] [place] [phone] 08/20/2025 9:45 AM EST Clinical Support [facility] [place] [facility] [address] [place] [phone] Chelita Hall RN 08/27/2025 8:30 AM EST [facility] [place] [facility] [address] [place] [phone] 09/03/2025 8:30 AM EST [facility] [place] [facility] [address] [place] [phone] 09/03/2025 9:45 AM EST Clinical Support [facility] [place] [facility] [address] [place] [phone] Chelita Hall RN 09/10/2025 8:30 AM EST [facility] Att[facility] [place] [facility] [address] [place] [phone] 09/17/2025 8:30 AM EST [facility] [place] [facility] [address] [place] [phone] 09/17/2025 9:45 AM EST Clinical Support [facility] [place] [facility] [address] [place] [phone] Chelita Hall RN 09/24/2025 8:30 AM EST [facility] [place] [facility] [address] [place] [phone] 10/01/2025 8:30 AM EST [facility] [place] [facility] [address] [place] [phone] 10/01/2025 9:45 AM EST Clinical Support [facility] [place] [facility] [address] [place] [phone] Chelita Hall RN 10/08/2025 8:30 AM EST [facility] [place] [facility] [address] [place] [phone] 10/15/2025 8:30 AM EST [facility] [place] [facility] [address] [place] [phone] 10/15/2025 9:45 AM EST Clinical Support [facility] [place] [facility] [address] [place] [phone] Chelita Hall RN 10/22/2025 8:30 AM EST [facility] [place] [facility] [address] [place] [phone] 10/29/2025 8:30 AM EDT P[facility] Attendance[facility] [place] [facility] [address] [place] [phone] 10/29/2025 9:45 AM EDT Clinical Support [facility] [place] [facility] [address] [place] [phone] Chelita Hall RN 11/05/2025 8:30 AM EDT P[facility] Attendance[facility] [place] [facility] [address] [place] [phone] 11/12/2025 8:30 AM EDT [facility] Att[facility] [place] [facility] [address] [place] [phone] 11/12/2025 9:45 AM EDT Clinical Support [facility] [place] [facility] Clinic [address] [place] [phone] Chelita Hall, ANNALEE 11/19/2025 8:30 AM EDT [facility] [place] [facility] [address] [place] [phone] 11/26/2025 8:30 AM EDT PACE Attendance/[place] [facility] [facility] [address] [place] [phone] 11/26/2025 9:45 AM EDT Clinical Support [facility] [place] [facility] [address] [place] [phone] Chelita Hall, ANNALEE 12/03/2025 8:30 AM EDT P[place] Attendance[place] [facility] [place] [facility] [address] [place] [phone] 12/10/2025 8:30 AM EDT PACE Attendance/[place] [facility] [place] [facility] [address] [place] [phone] 12/10/2025 9:45 AM EDT Clinical Support [facility] [place] [facility] Clinic [address] [place] [phone] Chelita Hall, ANNALEE 12/17/2025 8:30 AM EDT PACE Attendance/[place] [facility] [place] [facility] [address] [place] [phone] 12/24/2025 9:45 AM EDT Clinical Support [facility] [place] [facility] [address] [place] [phone] Chelita Hall, ANNALEE 01/07/2026 9:45 AM EDT Clinical Support [facility] [place] [facility] [address] [place] [phone] Chelita Hall, ANNALEE 01/21/2026 9:45 AM EDT Clinical Support [facility] [place] [facility] [address] [place] [phone] Chelita Hall RN 02/04/2026 9:45 AM EDT Clinical Support [facility] [place] [facility] [address] [place] [phone] Chelita Hall RN 02/18/2026 9:45 AM EDT Clinical Support [facility] [place] [facility] [address] [place] [phone] Chelita Hall RN 03/04/2026 9:45 AM EDT Clinical Support [facility] [place] [facility] [address] [place] [phone] Chelita Hall RN 03/18/2026 9:45 AM EDT Clinical Support [facility] [place] [facility] [address] [place] [phone] Chelita Hall RN 04/01/2026 9:45 AM EDT Clinical Support [facility] [place] [facility] [address] [place] [phone] Chelita Hall, ANNALEE 04/15/2026 9:45 AM EDT Clinical Support [facility] [place] [facility] [address] [phone] Chelita Hall, RN Health Maintenance Due Date Last Done Comments Diabetes: Annual Foot Exam 1961 Diabetes: Annual Retina Eye Exam 1961 Zoster Vaccines (1 of 2) 1970 RSV Immunization Adult Patients (1 - Risk 60-74 years 1-dose series) 2011 Hepatitis B Vaccines (2 of 3 - 19+ 3-dose series) 07/25/2018 06/27/2018 Pneumococcal Vaccine: 50+ Years (3 of 3 - PCV20 or PCV21) 10/12/2021 10/12/2016, 06/22/2008 Abdominal Aortic Aneurysm (AAA) Screen 07/25/2022 Hepatitis C Screening 07/25/2022 Social Influencers of Health Screening 07/25/2022 COVID-19 Vaccine ( season) 2024 07/08/2022, 12/08/2021, 06/04/2021, Additional history exists Depression Screening 08/22/2024 Influenza Vaccine (#1) 2025 , 05/27/2021, 05/19/2020, Additional history exists Diabetes: Blood Sugar Control Test (HGBA1C) 06/27/2025 12/25/2024, 01/10/2024 Diabetes: Annual Urine Albumin-Creatinine Ratio (uACR) 12/25/2025 12/25/2024, 06/26/2024 Falls Risk Assessment 01/06/2026 01/06/2025 Diabetes: Annual GFR (Glomerular Filtration Rate) 02/26/2026 02/26/2025, 02/19/2025, 02/05/2025, Additional history exists Hypertension/CHF/CAD Annual BMP Blood Test 02/26/2026 02/26/2025, 02/19/2025, 02/05/2025, Additional history exists Colorectal Cancer Screening: Colonoscopy 03/03/2026 03/03/2023 Cholesterol Screening (Lipid Panel) 09/18/2029 09/18/2024 DTaP,Tdap,and Td Vaccines (3 - Td or Tdap) 09/20/2034 09/20/2024, 11/25/2011 Hepatitis A Vaccines Aged Out 07/27/2018 No long er eligible based on patient's age to complete this topic HIB Vaccines Aged Out No longer eligi ble based on patient's age to complete this topic HPV Vaccines Aged Out No longer eligi ble based on patient's age to complete this topic IPV Vaccines Aged Out No longer eligi ble based on patient's age to complete this topic MMR Vaccines Aged Out No longer eligi ble based on patient's age to complete this topic Meningococcal ACWY Vaccine Aged Out N o longer eligible based on patient's age to complete this topic Meningococcal B Vaccine Aged Out No l onger eligible based on patient's age to complete this topic RSV Immunization Patients Under 20 months Aged Out No longer eligible based on patient's age to complete this topic Varicella Vaccines Aged Out No longer eligible based on patient's age to complete this topic Procedures Procedure Name Priority Date/Time Associated Diagnosis Comments CBC WITH AUTO DIFFERENTIAL Routine 02/26/2025 4:03 PM EDT Primary hypertension Congestive heart failure, unspecified HF chronicity, unspecified heart failure type (CMS/HCC V24, CMS/HCC V28) Anemia due to stage 3b chronic kidney disease (CMS/HCC V24, CMS/HCC V28) Iron deficiency anemia due to chronic blood loss CBC AND DIFFERENTIAL Routine 02/26/2025 4:03 PM EDT Primary hypertension Congestive heart failure, unspecified HF chronicity, unspecified heart failure type (CMS/HCC V24, CMS/HCC V28) Anemia due to stage 3b chronic kidney disease (CMS/HCC V24, CMS/HCC V28) Iron deficiency anemia due to chronic blood loss BASIC METABOLIC PANEL Routine 02/26/2025 4:03 PM EDT Primary hypertension Congestive heart failure, unspecified HF chronicity, unspecified heart failure type (CMS/HCC V24, CMS/HCC V28) Anemia due to stage 3b chronic kidney disease (CMS/HCC V24, CMS/HCC V28) Iron deficiency anemia due to chronic blood loss CALCIUM, IONIZED Routine 02/26/2025 4:03 PM EDT Primary hypertension Congestive heart failure, unspecified HF chronicity, unspecified heart failure type (CMS/HCC V24, CMS/HCC V28) Anemia due to stage 3b chronic kidney disease (CMS/HCC V24, CMS/HCC V28) Iron deficiency anemia due to chronic blood loss COMPREHENSIVE METABOLIC PANEL Routine 02/19/2025 12:39 PM EDT Chronic diastolic heart failure (CMS/HCC V24, CMS/HCC V28) Primary hypertension Type 2 diabetes mellitus with hyperglycemia, with long-term current use of insulin (CMS/HCC V24, CMS/HCC V28) CBC WITH AUTO DIFFERENTIAL STAT 02/05/2025 1:38 PM EDT MAGNESIUM STAT 02/05/2025 1:38 PM EDT BASIC METABOLIC PANEL STAT 02/05/2025 1:38 PM EDT CBC AND DIFFERENTIAL STAT 02/05/2025 1:38 PM EDT ECG ANNOTATED 01/15/2025 POCT GLUCOSE BLOOD Routine 01/11/2025 11 :51 PM EDT [place] URINE CULTURE TUBE STAT 01/11/2025 7:25 PM EDT URINALYSIS WITH REFLEX MICROSCOPIC AND CULTURE STAT 01/11/2025 7:25 PM EDT URINALYSIS WITH REFLEX MICROSCOPIC AND CULTURE STAT 01/11/2025 7:25 PM EDT POCT GLUCOSE BLOOD Routine 01/11/2025 7: 08 PM EDT ECG 12-LEAD STAT 01/11/2025 3:56 PM EDT CBC WITH AUTO DIFFERENTIAL STAT 01/11/2025 3:48 PM EDT MAGNESIUM STAT 01/11/2025 3:48 PM EDT BASIC METABOLIC PANEL STAT 01/11/2025 3:48 PM EDT CBC AND DIFFERENTIAL STAT 01/11/2025 3:48 PM EDT ECG OUTSIDE 01/09/2025 POCT GLUCOSE BLOOD Routine 01/08/2025 11 :54 AM EDT POCT GLUCOSE BLOOD Routine 01/08/2025 7: 35 AM EDT POCT GLUCOSE BLOOD Routine 01/08/2025 6: 01 AM EDT CBC WITH AUTO DIFFERENTIAL Routine 01/08/2025 5:26 AM EDT THYROID STIMULATING HORMONE WITH REFLEX TO FREE T4 AND FREE T3 Routine 01/08/2025 5:26 AM EDT PROTHROMBIN TIME WITH INR Routine 01/08/2025 5:26 AM EDT CBC AND DIFFERENTIAL Routine 01/08/2025 5:26 AM EDT PHOSPHORUS Routine 01/08/2025 5:26 AM EDT MAGNESIUM Routine 01/08/2025 5:26 AM EDT COMPREHENSIVE METABOLIC PANEL Routine 01/08/2025 5:26 AM EDT POCT GLUCOSE BLOOD Routine 01/08/2025 1: 25 AM EDT POCT GLUCOSE BLOOD Routine 01/07/2025 7: 39 PM EDT POCT GLUCOSE BLOOD Routine 01/07/2025 3: 49 PM EDT PROLACTIN Routine 01/07/2025 3:43 PM EDT LAVENDER - EDTA Routine 01/07/2025 3:42 PM EDT EXTRA TUBES Routine 01/07/2025 3:42 PM EDT POCT GLUCOSE BLOOD Routine 01/07/2025 12 :13 PM EDT POCT GLUCOSE BLOOD Routine 01/07/2025 8: 35 AM EDT POCT GLUCOSE BLOOD Routine 01/07/2025 7: 41 AM EDT LAVENDER - EDTA Routine 01/07/2025 5:43 AM EDT EXTRA TUBES Routine 01/07/2025 5:43 AM EDT LACOSAMIDE, SERUM OR PLASMA Routine 01/07/2025 5:43 AM EDT POCT GLUCOSE BLOOD Routine 01/06/2025 7: 58 PM EDT POCT GLUCOSE BLOOD Routine 01/06/2025 3: 22 PM EDT POCT GLUCOSE BLOOD Routine 01/06/2025 11 :40 AM EDT POCT GLUCOSE BLOOD Routine 01/06/2025 7: 48 AM EDT MAGNESIUM Routine 01/06/2025 5:19 AM EDT BASIC METABOLIC PANEL Routine 01/06/2025 5:19 AM EDT CBC WITH AUTO DIFFERENTIAL Routine 01/06/2025 5:18 AM EDT CBC AND DIFFERENTIAL Routine 01/06/2025 5:18 AM EDT CPAP NIV Routine 01/05/2025 10:00 PM EDT POCT GLUCOSE BLOOD Routine 01/05/2025 8: 22 PM EDT POCT GLUCOSE BLOOD Routine 01/05/2025 2: 26 PM EDT POCT GLUCOSE BLOOD Routine 01/05/2025 10 :59 AM EDT POCT GLUCOSE BLOOD Routine 01/05/2025 8: 13 AM EDT POCT GLUCOSE BLOOD Routine 01/05/2025 3: 57 AM EDT POCT GLUCOSE BLOOD Routine 01/04/2025 10 :25 PM EDT CPAP NIV Routine 01/04/2025 10:00 PM EDT POCT GLUCOSE BLOOD Routine 01/04/2025 4: 22 PM EDT POCT GLUCOSE BLOOD Routine 01/04/2025 11 :21 AM EDT POCT GLUCOSE BLOOD Routine 01/04/2025 8: 43 AM EDT CBC WITH AUTO DIFFERENTIAL Routine 01/04/2025 5:27 AM EDT CBC AND DIFFERENTIAL Routine 01/04/2025 5:27 AM EDT BASIC METABOLIC PANEL Routine 01/04/2025 5:27 AM EDT CPAP NIV Routine 01/03/2025 10:00 PM EDT POCT GLUCOSE BLOOD Routine 01/03/2025 9: 55 PM EDT POCT GLUCOSE BLOOD Routine 01/03/2025 7: 54 PM EDT POCT GLUCOSE BLOOD Routine 01/03/2025 4: 32 PM EDT POCT GLUCOSE BLOOD Routine 01/03/2025 4: 01 PM EDT POCT GLUCOSE, BLOOD Routine 01/03/2025 3 :36 PM EDT ROUTINE EEG Routine 01/03/2025 3:02 PM EDT POCT GLUCOSE, BLOOD Routine 01/03/2025 7 :42 AM EDT POCT GLUCOSE, BLOOD Routine 01/03/2025 7 :30 AM EDT CBC WITH AUTO DIFFERENTIAL Routine 01/03/2025 4:30 AM EDT MAGNESIUM Routine 01/03/2025 4:30 AM EDT CBC AND DIFFERENTIAL Routine 01/03/2025 4:30 AM EDT BASIC METABOLIC PANEL Routine 01/03/2025 4:30 AM EDT POCT GLUCOSE BLOOD Routine 01/03/2025 1: 48 AM EDT CPAP NIV Routine 01/02/2025 11:29 PM EDT POCT GLUCOSE BLOOD Routine 01/02/2025 8: 46 PM EDT ECG 12-LEAD STAT 01/02/2025 5:53 PM EDT ECG 12-LEAD STAT 01/02/2025 5:44 PM EDT LACOSAMIDE, SERUM OR PLASMA STAT 01/02/2025 4:10 PM EDT TROPONIN I HIGH SENSITIVITY STAT 01/02/2025 3:10 PM EDT XR CHEST 2 VIEWS STAT 01/02/2025 2:38 PM EDT CBC WITH AUTO DIFFERENTIAL STAT 01/02/2025 2:18 PM EDT LIPASE STAT 01/02/2025 2:18 PM EDT TROPONIN I HIGH SENSITIVITY STAT 01/02/2025 2:18 PM EDT PROLACTIN STAT 01/02/2025 2:18 PM EDT MAGNESIUM STAT 01/02/2025 2:18 PM EDT BASIC METABOLIC PANEL STAT 01/02/2025 2:18 PM EDT CBC AND DIFFERENTIAL STAT 01/02/2025 2:18 PM EDT ECG 12-LEAD STAT 01/02/2025 2:05 PM EDT POCT GLUCOSE BLOOD Routine 01/02/2025 1: 52 PM EDT ECG ANNOTATED 01/01/2025 XR CHEST 2 VIEWS STAT 12/31/2024 12:5 8 PM EDT ECG 12-LEAD STAT 12/31/2024 12:24 PM EDT TROPONIN I HIGH SENSITIVITY STAT 12/31/2024 12:16 PM EDT ECG 12-LEAD STAT 12/31/2024 11:07 AM EDT PROLACTIN Add-On 12/31/2024 11:05 AM EDT CBC WITH AUTO DIFFERENTIAL STAT 12/31/2024 11:05 AM EDT B-TYPE NATRIURETIC PEPTIDE STAT 12/31/2024 11:05 AM EDT MAGNESIUM STAT 12/31/2024 11:05 AM EDT LIPASE STAT 12/31/2024 11:05 AM EDT COMPREHENSIVE METABOLIC PANEL STAT 12/31/2024 11:05 AM EDT CBC AND DIFFERENTIAL STAT 12/31/2024 11:05 AM EDT TROPONIN I HIGH SENSITIVITY STAT 12/31/2024 11:05 AM EDT CBC WITH AUTO DIFFERENTIAL STAT 12/27/2024 9:55 AM EDT PROLACTIN STAT 12/27/2024 9:55 AM EDT MAGNESIUM STAT 12/27/2024 9:55 AM EDT BASIC METABOLIC PANEL STAT 12/27/2024 9:55 AM EDT CBC AND DIFFERENTIAL STAT 12/27/2024 9:55 AM EDT MICROALBUMIN CREATININE URINE RATIO Routine 12/25/2024 2:32 PM EDT Congestive heart failure, unspecified HF chronicity, unspecified heart failure type ([facility] V24, [facility] V28) CBC WITH AUTO DIFFERENTIAL Routine 12/25/2024 12:13 PM EDT Congestive heart failure, unspecified HF chronicity, unspecified heart failure type (CMS/HCC V24, CMS/HCC V28) CBC AND DIFFERENTIAL Routine 12/25/2024 12:13 PM EDT Congestive heart failure, unspecified HF chronicity, unspecified heart failure type (CMS/HCC V24, CMS/HCC V28) COMPREHENSIVE METABOLIC PANEL Routine 12/25/2024 12:13 PM EDT Congestive heart failure, unspecified HF chronicity, unspecified heart failure type (CMS/HCC V24, CMS/HCC V28) HEMOGLOBIN A1C Routine 12/25/2024 10:40 AM EDT Type 2 diabetes mellitus with other specified complication, with long-term current use of insulin (CMS/HCC V24, CMS/HCC V28) Type 2 diabetes mellitus with hyperglycemia, with long-term current use of insulin (CMS/HCC V24, CMS/[facility] V28) ECG ANNOTATED 12/15/2024 ECG OUTSIDE 12/15/2024 POCT GLUCOSE BLOOD Routine 12/14/2024 12 :02 PM EDT POCT GLUCOSE BLOOD Routine 12/14/2024 8: 18 AM EDT BASIC METABOLIC PANEL Timed 12/14/2024 5:24 AM EDT LAVENDER - EDTA Routine 12/14/2024 5:21 AM EDT EXTRA TUBES Routine 12/14/2024 5:21 AM EDT POCT GLUCOSE BLOOD Routine 12/13/2024 7: 47 PM EDT POCT GLUCOSE BLOOD Routine 12/13/2024 4: 00 PM EDT ROUTINE EEG Routine 12/13/2024 3:50 PM EDT POCT GLUCOSE BLOOD Routine 12/13/2024 11 :21 AM EDT POCT GLUCOSE BLOOD Routine 12/13/2024 8: 01 AM EDT CBC WITH AUTO DIFFERENTIAL Timed 12/13/2024 5:29 AM EDT BASIC METABOLIC PANEL Timed 12/13/2024 5:29 AM EDT CBC AND DIFFERENTIAL Timed 12/13/2024 5:29 AM EDT POCT GLUCOSE BLOOD Routine 12/12/2024 7: 34 PM EDT POCT GLUCOSE BLOOD Routine 12/12/2024 3: 36 PM EDT POCT GLUCOSE BLOOD Routine 12/12/2024 12 :18 PM EDT MR BRAIN WO CONTRAST Routine 12/12/2024 10:30 AM EDT POCT GLUCOSE BLOOD Routine 12/12/2024 7: 32 AM EDT COMPLETE BLOOD COUNT Routine 12/12/2024 5:33 AM EDT BASIC METABOLIC PANEL Routine 12/12/2024 5:33 AM EDT POCT GLUCOSE BLOOD Routine 12/11/2024 9: 55 PM EDT POCT GLUCOSE BLOOD Routine 12/11/2024 8: 20 PM EDT LT BLUE - NA CITRATE Routine 12/11/2024 7:05 PM EDT EXTRA TUBES Routine 12/11/2024 7:05 PM EDT PRIMIDONE LEVEL Timed 12/11/2024 7:05 PM EDT XR CHEST 1 VIEW STAT 12/11/2024 4:18 PM EDT POCT GLUCOSE BLOOD Routine 12/11/2024 2: 17 PM EDT ECG 12-LEAD STAT 12/11/2024 12:51 PM EDT TROPONIN I HIGH SENSITIVITY STAT 12/11/2024 12:[address] HEAD WO CONTRAST STAT 12/11/2024 1 1:55 AM EDT CBC WITH AUTO DIFFERENTIAL STAT 12/11/2024 11:37 AM EDT PROLACTIN STAT 12/11/2024 11:37 AM EDT B-TYPE NATRIURETIC PEPTIDE STAT 12/11/2024 11:37 AM EDT MAGNESIUM STAT 12/11/2024 11:37 AM EDT LIPASE STAT 12/11/2024 11:37 AM EDT COMPREHENSIVE METABOLIC PANEL STAT 12/11/2024 11:37 AM EDT CBC AND DIFFERENTIAL STAT 12/11/2024 11:37 AM EDT TROPONIN I HIGH SENSITIVITY STAT 12/11/2024 11:37 AM EDT ECG 12-LEAD STAT 12/11/2024 11:35 AM EDT LIPID PANEL Routine 09/18/2024 from Last 3 Months or Most Recently Relevant to Health Maintenance Results * (ABNORMAL) CBC auto differential (02/26/2025 4:03 PM EDT) Only the most recent of13 resultswithin the time period is included. [facility] Signature WBC 6.1 4.8 - 10.8 K/mcL LAB HEMETOLOGY METHOD 02/26/2025 6:23 PM EDT [facility] RBC 3.80(L) 4.50 - 5.50 M/mcL LAB HEMETOLOGY METHOD 02/26/2025 6:23 PM EDT [facility] Hemoglobin 11.4(L) 13.5 - 17.5 g/dL LAB HEMETOLOGY METHOD [facility] Hematocrit 35.9(L) 42.0 - 54.0 % LAB HEMETOLOGY METHOD 02/[facility]2025 [facility] MCV 95.2 79.0 - 98.0 FL LAB HEMETOLOGY METHOD 02/26[facility]2025 6[facility] MCH 30.2 27.0 - 32.0 pcg LAB HEMETOLOGY METHOD 02/26/2025 6:23 PM [facility] MCHC 31.8(L) 32.0 - 37.0 g/dL LAB HEMETOLOGY METHOD 02/26/2025 6:23 PM [facility] RDW 14.5 11.0 - 15.0 % LAB HEMETOLOGY METHOD 02/26[facility]2025 6[facility] Platelets 149 130 - 400 K/mcL LAB HEMETOLOGY METHOD 02/26/2025 6:23 PM [facility] MPV 10.5 7.0 - 11.0 FL LAB HEMETOLOGY METHOD 02/26[facility]2025 [facility] NRBC 0.0 <1.0 % LAB HEMETOLOGY METHOD [facility]25 [facility] NRBC Absolute 0.00 <0.10 K/mcL LAB HEMETOLOGY METHOD 02/26/2025 6[facility] Neutrophils Relative 64.5 % LAB HEMETOLOGY METHOD 02/26/2025 6:23 PM [facility] Lymphocytes Relative 18.3 % LAB HEMETOLOGY METHOD 02/26/2025 6:23 PM EDT [facility] Monocytes Relative 12.2 % LAB HEMETOLOGY METHOD 02/26/2025 6:23 PM EDT [facility] Eosinophils Relative 4.0 % LAB HEMETOLOGY METHOD 02/26/2025 6:23 PM EDT [facility] Basophils Relative 0.8 % LAB HEMETOLOGY METHOD 02/26/2025 6:23 PM EDT [facility] Immature Granulocytes Relative 0.2 % LAB HEMETOLOGY METHOD 02/26/2025 6:23 PM EDT [facility] Neutrophils Absolute 3.92 1.50 - 7.00 K/mcL LAB HEMETOLOGY METHOD 02/26/2025 6:23 PM EDT [facility] Lymphocytes Absolute 1.11 1.00 - 5.00 K/mcL LAB HEMETOLOGY METHOD 02/26/2025 6:23 PM EDT [facility] Monocytes Absolute 0.74 0.20 - 1.00 K/mcL LAB HEMETOLOGY METHOD 02/26/2025 6:23 PM EDT [facility] Eosinophils Absolute 0.24 0.00 - 0.50 K/mcL LAB HEMETOLOGY METHOD [facility]25 [facility] Basophils Absolute 0.05 0.00 - 0.20 K/mcL LAB HEMETOLOGY METHOD 02/26/2025 6:23 PM EDT [facility] Immature Granulocytes Absolute 0.01 0.00 - 0.03 K/mcL LAB HEMETOLOGY METHOD 02/26[facility]2025 [facility] Blood Venous blood specimen / Unknown Venipuncture / Unknown 02/26/2025 4:03 PM EDT 02/26/2025 4:04 PM EDT us Todd Laurent NP LAB BLOOD ORDERABLES Final Resul t [facility] [address] [place] [address], * Calcium, ionized (02/26/2025 4:03 PM EDT) Pathologist [facility] Calcium Ionized 4.8 4.6 - 5.4 mg/dL 03/01/2025 8:23 AM EDT [facility] Comment: Test performed at [facility], [address] , [place] [address] Nenita Hooper MD, PhD - Supervisor [employer] Blood Venous blood specimen / Unknown Venipuncture / Unknown 02/26/2025 4:03 PM EDT 02/26/2025 4:04 PM EDT Todd Laurent BOMB LO[employer] LAB BLOOD ORDERABLES Final Resul t [facility] [address] [place] [place] [address] * (ABNORMAL) Basic metabolic panel (02/26/2025 4:03 PM EDT) Only the most recent of11 resultswithin the time period is included. Pathologist [facility] Sodium 134 133 - 145 mmol/L LAB CHEMISTRY METHOD 02/26/2025 6:49 PM EDT [facility] Potassium 4.5 3.5 - 5.5 mmol/L LAB CHEMISTRY METHOD 02/26/2025 6:49 PM EDT [facility] Chloride 101 96 - 110 mmol/L LAB CHEMISTRY METHOD 02/26/2025 6:49 PM EDT [facility] CO2 29 21 - 32 mmol/L LAB CHEMISTRY METHOD 02/26/2025 6:49 PM EDT [facility] Anion Gap 4 3 - 11 LAB CHEMISTRY METHOD 02/26/2025 6:49 PM EDT [facility] Glucose 284(H) 70 - 100 mg/dL LAB CHEMISTRY METHOD 02/26/2025 6:49 PM EDT [facility] BUN 26(H) 5 - 25 mg/dL LAB CHEMISTRY METHOD 02/26/2025 6:49 PM EDT [facility] Creatinine 2.37(H) 0.70 - 1.30 mg/dL LAB CHEMISTRY METHOD 02/26/2025 6:49 PM EDT [facility] eGFR 28(L) >=60 mL/min/1. 73m2 LAB CHEMISTRY METHOD 02/26/2025 6:49 PM EDT [facility] Comment:Calculation based on the Chronic Kidney Disease Epidemiology Collaboration (CKD-EPI) equation refit without adjustment for race. BUN/Creatinine Ratio 11.0 LAB CHEMISTRY METHOD 02/26/2025 6:49 PM EDT [facility] Calcium 8.9 8.5 - 10.5 mg/dL LAB CHEMISTRY METHOD 02/26/2025 6:49 PM EDT [facility] Blood Venous blood specimen / Unknown Venipuncture / Unknown 02/26/2025 4:03 PM EDT 02/26/2025 4:04 PM EDT us Todd Laurent NP LAB BLOOD ORDERABLES Final Resul t [facility] [address] [place] [address], * (ABNORMAL) Comprehensive metabolic panel (02/19/2025 12:39 PM EDT) Only the most recent of5 resultswithin the time period is included. Sodium 138 133 - 145 mmol/L LAB CHEMISTRY METHOD 02/19/2025 6:43 PM EDT [facility] Potassium 4.5 3.5 - 5.5 mmol/L LAB CHEMISTRY METHOD 02/19/2025 6:43 PM EDT [facility] Chloride 104 96 - 110 mmol/L LAB CHEMISTRY METHOD 02/19/2025 6:43 PM EDT [facility] CO2 28 21 - 32 mmol/L LAB CHEMISTRY METHOD 02/19/2025 6:43 PM [facility] Anion Gap 6 3 - 11 LAB CHEMISTRY METHOD 02/19/2025 6:43 PM [facility] Glucose 361(H) 70 - 100 mg/dL LAB CHEMISTRY METHOD 02/19/2025 6:43 PM [facility] BUN 21 5 - 25 mg/dL LAB CHEMISTRY METHOD 02/19/2025 6:43 PM [facility] Creatinine 2.26(H) 0.70 - 1.30 mg/dL LAB CHEMISTRY METHOD 02/19/2025 6:43 PM [facility] eGFR 30(L) >=60 mL/min/1. 73m2 LAB CHEMISTRY METHOD 02/19/2025 6:43 PM [facility] Comment:Calculation based on the Chronic Kidney Disease Epidemiology Collaboration (CKD-EPI) equation refit without adjustment for race. BUN/Creatinine Ratio 9.3 LAB CHEMISTRY METHOD 02/19/2025 6:43 PM [facility] Calcium 8.2(L) 8.5 - 10.5 mg/dL LAB CHEMISTRY METHOD 02/19/2025 6:43 PM [facility] AST (SGOT) 22 10 - 42 unit/L LAB CHEMISTRY METHOD 02/19/2025 6:43 PM [facility] ALT (SGPT) 28 10 - 60 unit/L LAB CHEMISTRY METHOD 02/19/2025 6:43 PM [facility] Alkaline Phosphatase 110 42 - 121 unit/L LAB CHEMISTRY METHOD 02/19/2025 6:43 PM [facility] Total Protein 6.3 6.0 - 8.0 g/dL LAB CHEMISTRY METHOD 02/19/2025 6:43 PM [facility] Albumin 3.0(L) 3.2 - 5.0 g/dL LAB CHEMISTRY METHOD 02/19/2025 6:43 PM EDT [facility] Total Bilirubin 0.6 0.0 - 1.4 mg/dL LAB CHEMISTRY METHOD 02/19/2025 6:43 PM EDT [facility] Blood Venous blood specimen / Unknown Venipuncture / Unknown 02/19/2025 12:39 PM EDT 02/19/2025 12:39 PM EDT Todd Laurent B[employer] LAB BLOOD ORDERABLES Final Resul t Performing Organization Address City/[facility]/ZIP Co de Phone Number [facility] [address] [place] [address], [place] [phone] * Magnesium (02/05/2025 1:38 PM EDT) Only the most recent of9 resultswithin the time period is included. Magnesium 2.4 1.9 - 2.6 mg/dL LAB CHEMISTRY METHOD 02/05/2025 2:59 PM EDT [facility] Blood Venous blood specimen / Unknown Venipuncture / Unknown 02/05/2025 1:38 PM EDT 02/05/2025 2:25 PM EDT Cyndee BOWENS LAB BLOOD ORDERABLES Fin al Result Performing Organization Address [facility]/ZIP Co de Phone Number [facility] [address] [place] [address], [place] [phone] * ECG-Annotated (01/15/2025) Only the most recent of3 resultswithin the time period is included. Provider Onbase MD ECG ORDERABLES Final Result * (ABNORMAL) POCT Glucose, blood (01/11/2025 11:51 PM EDT) Only the most recent of44 resultswithin the time period is included. Glucose POCT 249(H) 70 - 100 mg/dL 01/11/2025 11:52 PM EDT [facility] Blood Capillary blood specimen / Unknown 01/11/2025 11:51 PM EDT 01/11/2025 11:53 PM EDT us Generic Provider Poct LAB POINT OF CARE TEST DOCKED DEVICE UNSOLICITED RESULTS Final Result [facility] [address] [place] [address], * (ABNORMAL) Urinalysis with reflex microscopic and culture (01/11/2025 7:25 PM EDT) Specific [place] Urine 1.021 1.003 - 1.030 LAB URINALYSIS - AUTOMATED METHOD 01/11/2025 7:44 PM EDT [facility] pH, Urine 6.0 5.0 - 8.0 pH LAB URINALYSIS - AUTOMATED METHOD 01/11/2025 7:44 PM EDT [facility] Leukocytes, Urine Negative Negative LAB URINALYSIS - AUTOMATED METHOD 01/11/2025 7:44 PM T [facility] Nitrite, Urine Negative Negative LAB URINALYSIS - AUTOMATED METHOD 01/11/2025 7:44 PM EDT [facility] Protein, Urine Negative <=Trace mg/dL LAB URINALYSIS - AUTOMATED METHOD 01/11/2025 7:44 PM EDT [facility] Glucose, Urine >=1000(A) Negative mg/dL LAB URINALYSIS - AUTOMATED METHOD 01/11/2025 7:44 PM EDT [facility] Ketones, Urine Negative Negative mg/dL LAB [facility]ALYSIS - [facility]OMATED METHOD [facility] , Urine 0.2 0.2 - 1.0 mg/dL LAB URINALYSIS - AUTOMATED METHOD [facility] Bilirubin, Urine Negative Negative LAB URINALYSIS - AUTOMATED METHOD 01/11/2025 7:44 PM EDT [facility] Blood, Urine Negative Negative LAB URINALYSIS - AUTOMATED METHOD 01/11/2025 7:44 PM EDT [facility] Urine Urine specimen obtained by clean catch procedure / Unknown Non-blood Collection / Unknown 01/11/2025 7:25 PM EDT 01/11/2025 7:31 PM EDT [facility] URINE ORDERABLES F inal Result Performing Organization Address [facility]/ZIP Co de Phone Number [facility] [address] [place] [address], [place] [phone] * [place] urine culture tube (01/11/2025 7:25 PM EDT) Pathologist [facility] Extra Tube Hold for add-ons. 01/11/2025 9:01 PM EDT [facility] Comment:Auto resulted. Urine Urine specimen obtained by clean catch procedure / Unknown Non-blood Collection / Unknown 01/11/2025 7:25 PM EDT 01/11/2025 7:31 PM EDT [facility] LAB URINE ORDERABLES F inal Result Performing Organization Address [facility]/ZIP Co de Phone Number [facility] [address] [place] [address], [place] [phone] * ECG 12 lead (01/11/2025 3:56 PM EDT) Only the most recent of7 resultswithin the time period is included. Ventricular Rate ECG 74 BPM GEMUSE Atrial Rate 74 BPM GEMUSE QRS Duration 108 ms GEMUSE Q-T Interval 430 ms GEMUSE QTc 477 ms GEMUSE R Delano 10 degrees GEMUSE T Delano 43 degrees GEMUSE ECG Interpretation Sinus rhythm Prolongation of QT interval When compared with ECG of 11-JAN-2025 15:56, (unconfirmed) No significant change was found Confirmed by Laurel REYES YUFENG ([id number]) on 01/11/2025 5:11:04 PM GEMUSE 01/11/2025 3:56 PM EDT 01/11/2025 5:11 PM EDT Gerardo Ruvalcaba DO ECG ORDERABLES Final Result Performing Organization Address City/[facility]/ZIP Co de Phone Number GEMUSE * ECG-Outside (01/09/2025) Only the most recent of2 resultswithin the time period is included. Provider Onbase MD ECG ORDERABLES Final Result * Thyroid stimulating hormone with reflex to free t4 and free t3 (01/08/2025 5:26 AM EDT) TSH 2.60 0.40 - 4.00 mcIU/mL LAB CHEMISTRY METHOD 01/08/2025 8:27 AM EDT [facility] Blood Venous blood specimen / Unknown Venipuncture / Unknown 01/08/2025 5:26 AM EDT 01/08/2025 6:17 AM EDT Giovanny Solares MD LAB BLOOD ORDERABLES Final Resu lt Performing Organization Address City/[facility]/ZIP Co de Phone Number [facility] [address] [place] [address], [place] [phone] * Prothrombin time with INR (01/08/2025 5:26 AM EDT) Protime 12.5 10.6 - 13.9 sec LAB COAGULATION METHOD 01/08/2025 7:03 AM EDT [facility] INR 1.0 LAB COAGULATION METHOD 01/08/2025 7:03 AM EDT [facility] Blood Venous blood specimen / Unknown Venipuncture / Unknown 01/08/2025 5:26 AM EDT 01/08/2025 6:17 AM EDT us Giovanny Solares MD LAB BLOOD ORDERABLES Final Resu lt Performing Organization Address City/[facility]/ZIP Co de Phone Number [facility] [address] [place] [address], [place] [phone] * Phosphorus (01/08/2025 5:26 AM EDT) Phosphorus 3.1 2.5 - 4.5 mg/dL LAB CHEMISTRY METHOD 01/08/2025 7:03 AM EDT [facility] Blood Venous blood specimen / Unknown Venipuncture / Unknown 01/08/2025 5:26 AM EDT 01/08/2025 6:17 AM EDT us Giovanny Solares MD LAB BLOOD ORDERABLES Final Resu lt Performing Organization Address [facility] Co de Phone Number [facility] [address] [place] [address], [place] [phone] * Prolactin (01/07/2025 3:43 PM EDT) Only the most recent of5 resultswithin the time period is included. Prolactin 7.60 2.50 - 17.40 ng/mL LAB CHEMISTRY METHOD 01/07/2025 4:44 PM EDT [facility] Blood Venous blood specimen / Unknown Venipuncture / Unknown 01/07/2025 3:43 PM EDT 01/07/2025 4:09 PM EDT us Giovanny Solares MD LAB BLOOD ORDERABLES Final Resu lt Performing Organization Address City/[facility]/ZIP Co de Phone Number [facility] [address] [place] [address], [place] [phone] * Lavender tube (01/07/2025 3:42 PM EDT) Only the most recent of3 resultswithin the time period is included. Extra Tube Hold for add-ons. 01/07/2025 6:01 PM EDT [facility] Comment:Auto resulted. Blood Venous blood specimen / Unknown 01/07/2025 3:42 PM EDT 01/07/2025 4:10 PM EDT Giovanny Solares MD LAB BLOOD ORDERABLES Final Resu lt [facility] [address] [place] [address], [place] [phone] * Lacosamide level (01/07/2025 5:43 AM EDT) Only the most recent of2 resultswithin the time period is included. Pathologist [facility] Lacosamide 10.4 mcg/mL 01/13/2025 4:34 PM EDT [facility] Comment: (Note) Expected concentrations of Lacosamide in patients receiving recommended daily dosages: Up to 15.0 mcg/mL.Toxic range not established. This test was developed and its analytical performance characteristics have been determined by [employer]. It has not been cleared or approved by the FDA. This assay has been validated pursuant to the CLIA regulations and is used for clinical purposes. [facility] [address] [address],[address] [place] [id number] Alexandru Warner MD, PhD Test Performed at: [facility] [address] [facility] [address], [address] [place] [address] Milly Warner MD, PhD Blood Venous blood specimen / Unknown Venipuncture / Unknown 01/07/2025 5:43 AM EDT 01/07/2025 6:23 AM EDT Bette Cox NP LAB BLOOD ORDERABLES Fin al Result [facility] [address] [place] [address] * (ABNORMAL) POCT Glucose, blood (01/03/2025 3:36 PM EDT) Only the most recent of3 resultswithin the time period is included. Pathologist [facility] Glucose, Fingerstick 170 Blood Capillary blood specimen / Unknown 01/03/2025 3:36 PM EDT Alexey BOWENS LAB POINT OF CARE TEST DOCKED DEVICE ORDERABLES Final Result * Routine EEG (01/03/2025 3:02 PM EDT) Narrative Jamie Lara MD - 01/03/2025 3:42 PM EDT A digital video EEG was performed using the standard international 10-20 electrode placement and a single channel EKG electrode. Montages: Standard 10-20 system montages Type of Study: Video recorded: Yes Conditions of Recording: Awake - Drowsy - Sleep Description: The waking background activity consists of a moderate voltage diffuse 7.5 Hz slow alpha with intermittent slowing in the 5 to 6 Hz theta range seen over both hemispheres. 2 prolonged bursts of low to moderate voltage spike discharges are seen that seem to originate in the right posterior temporal region and continue for about 30 to 45 seconds without any clinical symptoms. The second episode spreads into the left hemisphere as well. No clinical seizures or notations are made. Photic stimulation is without activation. Hyperventilation was omitted. Impression: This EEG is considered abnormal due to #1. Two prolonged bursts of epileptiform discharges seen from the right posterior temporal region with the second 1 having bilateral spread. #2. There is also mild generalized background slowing. This EEG correlates with a seizure focus in the right posterior temporal region and mild diffuse cerebral dysfunction Kanwal Quinn MD NEUROLOGY ORDERABLES Final Res ult * Troponin I high sensitivity (01/02/2025 3:10 PM EDT) Only the most recent of6 resultswithin the time period is included. Pathologist [facility] High Sensitivity Troponin I 12 <=79 ng/L LAB CHEMISTRY METHOD 01/02/2025 4:10 PM EDT [facility] Blood Venous blood specimen / Unknown Venipuncture / Unknown 01/02/2025 3:10 PM EDT 01/02/2025 3:27 PM EDT Narrative [facility] - 01/02/2025 4:10 PM EDT High levels of biotin in samples may falsely decrease hsTroponin values. Use caution when interpreting hsTroponin results in patients taking biotin who exhibit renal impairment (eGFR <60) or in patients taking more than 20 mg/day of biotin. us Romero Watson MD LAB BLOOD ORDERABLES Final Resu lt [facility] [address] [place] [address], * XR Chest 2 Views (01/02/2025 2:38 PM EDT) Only the most recent of2 resultswithin the time period is included. Anatomical Region Laterality Modality Body Radiographic Bailey ging 01/02/2025 2:45 PM EDT Impressions 01/02/2025 2:46 PM EDT FINDINGS/IMPRESSION: Postoperative mediastinum. No consolidation or effusion. No congestive heart failure. Mild degenerative changes of the spine and shoulders. -------- FINAL REPORT -------- Dictated By: Claudette Zendejas Dictated Date: 01/02/2025 14:45 ET Assigned Physician: Claudette Zendejas Reviewed and Electronically Signed By: Claudette Zendejas Signed Date: 01/02/2025 14:46 ET Workstation ID: [id number] Transcribed By: Self Edit Transcribed Date: 01/02/2025 14:45 ET Narrative 01/02/2025 2:46 PM EDT XR CHEST 2 VIEWS INDICATION: chest pain TECHNIQUE: XR CHEST 2 VIEWS COMPARISON: No priors available. Procedure Note Claudette Zendejas MD - 01/02/2025 XR CHEST 2 VIEWS INDICATION: chest pain TECHNIQUE: XR CHEST 2 VIEWS COMPARISON: No priors available. IMPRESSION: FINDINGS/IMPRESSION: Postoperative mediastinum. No consolidation oreffusion. No congestive heart failure. Mild degenerative changes of thespine and shoulders. -------- FINAL REPORT -------- Dictated By: Claudette Zendejas Dictated Date: 01/02/2025 14:45 ET Assigned Physician: Claudette Zendejas Reviewed and Electronically Signed By: Claudette Zendejas Signed Date: 01/02/2025 14:46 ET Workstation ID: [id number] Transcribed By: Self Edit Transcribed Date: 01/02/2025 14:45 ET us Romero Watson MD IMG XR PROCEDURES Final Result * Lipase (01/02/2025 2:18 PM EDT) Only the most recent of3 resultswithin the time period is included. Lipase 29 13 - 75 unit/L LAB CHEMISTRY METHOD 01/02/2025 3:16 PM EDT [facility] Blood Venous blood specimen / Unknown Venipuncture / Unknown 01/02/2025 2:18 PM EDT 01/02/2025 2:36 PM EDT us Romero Watson MD LAB BLOOD ORDERABLES Final Resu lt Performing Organization Address City/[facility]/ZIP Co de Phone Number [facility] [address] [place] [address], [place] [phone] * B-type natriuretic peptide (12/31/2024 11:05 AM EDT) Only the most recent of2 resultswithin the time period is included. BNP 46 <=100 pcg/mL LAB CHEMISTRY METHOD 12/31/2024 12:07 PM EDT [facility] Blood Venous blood specimen / Unknown Venipuncture / Unknown 12/31/2024 11:05 AM EDT 12/31/2024 11:23 AM EDT us Romero Watson MD LAB BLOOD ORDERABLES Final Resu lt [facility] [address] [place] [address], [place] [phone] * Microalbumin creatinine urine ratio (12/25/2024 2:32 PM EDT) Creatinine, Urine 27.0 mg/dL LAB CHEMISTRY METHOD 12/25/2024 6:20 PM EDT [facility] Microalb, Ur <5.0 0.0 - 29.0 mg/L LAB CHEMISTRY METHOD 12/25/2024 6:20 PM EDT [facility] Microalb/Creat Ratio <19 <30 mg/g creat LAB CHEMISTRY METHOD 12/25/2024 6:20 PM EDT [facility] Urine Urine specimen obtained by clean catch procedure / Unknown Non-blood Collection / Unknown 12/25/2024 2:32 PM EDT 12/25/2024 2:32 PM EDT Todd Laurent NP LAB URINE ORDERABLES Final Resul t [facility] [address] [place] [address], [place] [phone] * (ABNORMAL) Hemoglobin A1c (12/25/2024 10:40 AM EDT) Pathologist [facility] Hemoglobin A1C 8.5(H) <6.5 % LAB CHEMISTRY METHOD 12/25/2024 10:22 PM EDT [facility] Mean Bld Glu Estim. 197 mg/dL LAB CHEMISTRY METHOD 12/25/2024 10:22 PM EDT [facility] Blood Venous blood specimen / Unknown Venipuncture / Unknown 12/25/2024 10:40 AM EDT 12/25/2024 10:40 AM EDT Nicolasa Hawkins MD LAB BLOOD ORDERABLES Final Result [facility] [address] [place] [address], [place] [phone] * Routine EEG (12/13/2024 3:50 PM EDT) Narrative Tigre Ordoñez MD - 12/13/2024 4:18 PM EDT This is a 16 channel EEG with an EKG lead. Patient is reported awake with brief periods of sleep during the tracing. During the study 2 episodes of left side of face twitching and left forearm and hand twitching were noted. Background EEG rhythm was symmetric alpha posteriorly and lower amplitude faster anteriorly. 1 bifrontal sharp and slow wave complex was noted. There was also another generalized delta range discharge during wakefulness. Patient's symptoms did not reveal any obvious EEG abnormalities. Cardiac lead did not reveal any significant abnormality. Photic stimulation did not produce any significant driving and hyperventilation was not performed. Impression: Mildly abnormal EEG suggestive of frontal lobe seizure activity that typically can present as motor seizures and many times may not have corresponding EEG abnormality on this type of EEG tracing. us Yasmani Berman MD NEUROLOGY ORDERABLES Final Resul t * MR Brain wo Contrast (12/12/2024 10:30 AM EDT) Anatomical Region Laterality Modality Head and Neck Magnetic Resonan ce 12/12/2024 10:5 6 AM EDT Impressions 12/12/2024 11:00 AM EDT No acute intracranial findings. No seizure focus identified. -------- FINAL REPORT -------- Dictated By: Edenilson Davis Dictated Date: 12/12/2024 10:56 ET Assigned Physician: Edenilson Davis Reviewed and Electronically Signed By: Edenilson Davis Signed Date: 12/12/2024 11:00 ET Workstation ID: [id number] Transcribed By: Self Edit Transcribed Date: 12/12/2024 10:56 ET Narrative 12/12/2024 11:00 AM EDT PROCEDURE: Noncontrast MRI of the brain. HISTORY: Seizure, abnormal neuro exam. COMPARISON: Head CT 12/11/2024. TECHNIQUE: Multiplanar multisequence MRI of the brain without intravenous contrast administration. FINDINGS: BRAIN: No diffusion abnormality. No mass or extra-axial fluid collection. No hydrocephalus. The major intracranial flow voids are preserved. Generalized age commensurate sulcal and ventricular prominence. 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 A few foci of T2 prolongation in the supratentorial white matter are nonspecific but likely sequela of mild chronic microvascular ischemic disease in a patient of this age. Coronal images through the hippocampi demonstrate no findings to suggest mesial temporal sclerosis. ORBITS: Lens implants. SINUSES/MASTOIDS: The right frontal sinus is not pneumatized. Trace right mastoid fluid. CALVARIUM: Normal. OTHER: The visualized skull base soft tissues are normal. Mild degenerative changes of the temporomandibular joints. Procedure Note Edenilson Davis MD - 12/12/2024 PROCEDURE: Noncontrast MRI of the brain. HISTORY: Seizure, abnormal neuro exam. COMPARISON: Head CT 12/11/2024. TECHNIQUE: Multiplanar multisequence MRI of the brain without intravenouscontrast administration. FINDINGS: BRAIN: No diffusion abnormality. No mass or extra-axial fluid collection.No hydrocephalus. The major intracranial flow voids are preserved.Generalized age commensurate sulcal and ventricular prominence. Smalllinear areas of encephalomalacia in both cerebellar hemispheres suggestingsequela of previous small vessel infarcts. A few foci of T2 prolongationin the supratentorial white matter are nonspecific but likely sequela ofmild chronic microvascular ischemic disease in a patient of this age.Coronal images through the hippocampi demonstrate no findings to suggestmesial temporal sclerosis. ORBITS: Lens implants. SINUSES/MASTOIDS: The right frontal sinus is not pneumatized. Trace rightmastoid fluid. CALVARIUM: Normal. OTHER: The visualized skull base soft tissues are normal. Milddegenerative changes of the temporomandibular joints. IMPRESSION: No acute intracranial findings. No seizure focus identified. -------- FINAL REPORT -------- Dictated By: Edenilson Davis Dictated Date: 12/12/2024 10:56 ET Assigned Physician: Edenilson Davis Reviewed and Electronically Signed By: Edenilson Davis Signed Date: 12/12/2024 11:00 ET Workstation ID: [id number] Transcribed By: Self Edit Transcribed Date: 12/12/2024 10:56 ET us Paul Miller MD IM MRI PROCEDURES Final Resul t * (ABNORMAL) Complete blood count (12/12/2024 5:33 AM EDT) WBC 6.1 4.8 - 10.8 K/mcL LAB [facility]EMETOLOGY [facility] RBC 3.60(L) 4.50 - 5.50 M/mcL LAB HEMETOLOGY METHOD 12/12/2024 6:43 AM [facility] Hemoglobin 11.6(L) 13.5 - 17.5 g/dL LAB HEMETOLOGY METHOD 12/12/2024 6:43 AM [facility] Hematocrit 34.4(L) 42.0 - 54.0 % LAB HEMETOLOGY METHOD 12/12/2024 6:43 AM [facility] MCV 94.8 79.0 - 98.0 FL LAB HEMETOLOGY METHOD 12/12/2024 6:43 AM [facility] MCH 32.0 27.0 - 32.0 pcg LAB HEMETOLOGY METHOD 12/12/2024 6:43 AM [facility] MCHC 33.7 32.0 - 37.0 g/dL LAB HEMETOLOGY METHOD 12/12/2024 6:43 AM [facility] RDW 13.5 11.0 - 15.0 % LAB HEMETOLOGY METHOD 12/12/2024 6:43 AM [facility] Platelets 134 130 - 400 K/mcL LAB HEMETOLOGY METHOD 12/12/2024 6:43 AM [facility] MPV 10.0 7.0 - 11.0 FL LAB HEMETOLOGY METHOD 12/12/2024 6:43 AM EDT [facility] NRBC 0.0 <1.0 % LAB HEMETOLOGY METHOD 12/12/2024 6:43 AM EDT [facility] NRBC Absolute 0.00 <0.10 K/mcL LAB HEMETOLOGY METHOD 12/12/2024 6:43 AM EDT [facility] Blood Venous blood specimen / Unknown Venipuncture / Unknown 12/12/2024 5:33 AM EDT 12/12/2024 6:18 AM EDT Paul Miller MD LAB BLOOD ORDERABLES Final Res ult Performing Organization Address [facility]/ZIP Co de Phone Number [facility] [address] [place] [address], [place] [phone] * Light blue tube (12/11/2024 7:05 PM EDT) Extra Tube Hold for add-ons. 12/11/2024 9:01 PM EDT [facility] Comment:Auto resulted. Blood Venous blood specimen / Unknown 12/11/2024 7:05 PM EDT 12/11/2024 7:09 PM EDT Paul Miller MD LAB BLOOD ORDERABLES Final Res ult [facility] [address] [place] [address], [place] [phone] * (ABNORMAL) Primidone level (12/11/2024 7:05 PM EDT) Primidone (Mysoline) <1.0(L) 4 - 12 ug/mL 12/14/2024 9:38 AM EDT [facility] Comment: Primidone toxic level: >20 ug/mL If applicable, any drug confirmation testing reported here was developed and the performance characteristics determined by [facility]. This confirmation testing has not been cleared or approved by the FDA. The laboratory is regulated under CLIA as qualified to perform high-complexity testing. This test is used for patient testing purposes. It should not be regarded as investigational or for research. Test performed at [facility], [address], [place] [address] Nenita Hooper MD, PhD - Supervisor [employer] Blood Venous blood specimen / Unknown Venipuncture / Unknown 12/11/2024 7:05 PM EDT 12/11/2024 7:09 PM EDT us Keturah BOWENS LAB BLOOD ORDERABLES Fi nal Result [facility] [address] [place] [address] * XR Chest 1 View (12/11/2024 4:18 PM EDT) Anatomical Region Laterality Modality Body Radiographic Bailey ging 12/11/2024 4:23 PM EDT Impressions 12/11/2024 4:24 PM EDT FINDINGS/IMPRESSION: Postoperative mediastinum. No pneumonia or congestive heart failure. Cervical fusion hardware. -------- FINAL REPORT -------- Dictated By: Claudette Zendejas Dictated Date: 12/11/2024 16:23 ET Assigned Physician: Claudette Zendejas Reviewed and Electronically Signed By: Claudette Zendejas Signed Date: 12/11/2024 16:24 ET Workstation ID: [id number] Transcribed By: Self Edit Transcribed Date: 12/11/2024 16:23 ET Narrative 12/11/2024 4:24 PM EDT XR CHEST 1 VIEW INDICATION: pain TECHNIQUE: XR CHEST 1 VIEW COMPARISON: No priors available. Procedure Note Claudette Zendejas MD - 12/11/2024 XR CHEST 1 VIEW INDICATION: pain TECHNIQUE: XR CHEST 1 VIEW COMPARISON: No priors available. IMPRESSION: FINDINGS/IMPRESSION: Postoperative mediastinum. No pneumonia orcongestive heart failure. Cervical fusion hardware. -------- FINAL REPORT -------- Dictated By: Claudette Zendejas Dictated Date: 12/11/2024 16:23 ET Assigned Physician: Claudette Zendejas Reviewed and Electronically Signed By: Claudette Zendejas Signed Date: 12/11/2024 16:24 ET Workstation ID: [id number] Transcribed By: Self Edit Transcribed Date: 12/11/2024 16:23 ET Paul Miller MD IMG XR PROCEDURES Final Result * CT Head wo Contrast (12/11/2024 11:55 AM EDT) Anatomical Region Laterality Modality Head and Neck Computed Tomogra phy 12/11/2024 11:5 9 AM EDT Impressions 12/11/2024 12:02 PM EDT No acute intracranial findings. No seizure focus is evident. -------- FINAL REPORT -------- Dictated By: Edenilson Davis Dictated Date: 12/11/2024 11:59 ET Assigned Physician: Edenilson Davis Reviewed and Electronically Signed By: Edenilson Davis Signed Date: 12/11/2024 12:02 ET Workstation ID: [id number] Transcribed By: Self Edit Transcribed Date: 12/11/2024 11:59 ET Narrative 12/11/2024 12:02 PM EDT PROCEDURE: Noncontrast head CT. HISTORY: Seizure, nontraumatic (Age >= 41y). COMPARISON: 11/06/2024. TECHNIQUE: Noncontrast head CT with coronal and sagittal reformats. Dose length product: 809 mGy-cm. FINDINGS: BRAIN: No hemorrhage, edema, or mass. Small benign retrocerebellar cyst.. No CT evidence of an acute large vessel infarct. There are scattered punctate leptomeningeal calcifications. Generalized sulcal and ventricular prominence which is slightly advanced for patient age. ORBITS: Lens implants. SINUSES/MASTOIDS: The right frontal sinus is not pneumatized in the left is hypoplastic. CALVARIUM: Normal. OTHER: The skull base soft tissues are normal. Trace debris in the left EAC. Procedure Note Edenilson Davis MD - 12/11/2024 PROCEDURE: Noncontrast head CT. HISTORY: Seizure, nontraumatic (Age >= 42y). COMPARISON: 11/06/2024. TECHNIQUE: Noncontrast head CT with coronal and sagittal reformats. Dose length product: 809 mGy-cm. FINDINGS: BRAIN: No hemorrhage, edema, or mass. Small benign retrocerebellar cyst..No CT evidence of an acute large vessel infarct. There are scatteredpunctate leptomeningeal calcifications. Generalized sulcal andventricular prominence which is slightly advanced for patient age. ORBITS: Lens implants. SINUSES/MASTOIDS: The right frontal sinus is not pneumatized in the leftis hypoplastic. CALVARIUM: Normal. OTHER: The skull base soft tissues are normal. Trace debris in the leftEAC. IMPRESSION: No acute intracranial findings. No seizure focus is evident. -------- FINAL REPORT -------- Dictated By: Edenilson Davis Dictated Date: 12/11/2024 11:59 ET Assigned Physician: Edenilson Davis Reviewed and Electronically Signed By: Edenilson Davis Signed Date: 12/11/2024 12:02 ET Workstation ID: [id number] Transcribed By: Self Edit Transcribed Date: 12/11/2024 11:59 ET Romero Watson MD [facility] [place] PROCEDURES Final Result * (ABNORMAL) Lipid panel (09/18/2024) LDL/HDL Ratio 2 <=5 Triglycerides 182(A) <=150 mg/dL Cholesterol 106 <=200 mg/dL HDL 47 >=40 mg/dL LDL Cholesterol 33 <=100 mg/dL Blood Venous blood specimen / Unknown [facility] Provider LAB BLOOD ORDERABLES Xiomara l Result from Last 3 Months or Most Recently Relevant to Health Maintenance Insurance [facility] * Guarantor: [employer] Account Type Relation to Patient Date of Phone Billing [place] [address] Advance Directives Documents on File Type Date Recorded Patient Picker And Sorter Load And Unload Expl anation Advance Directives and Living Will 10/08/2024 2:21 PM ADV DIR-Healthcare Proxy 3.5.19 Advance Directives and Living Will 10/08/2024 2:18 PM ADV DIR-Care [place] 4.11.18 Advance Directives and Living Will 10/08/2024 2:18 PM ADV DIR-Healthcare Proxy 3.5.19 Advance Directives and Living Will 10/08/2024 2:18 PM ADV DIR-MOLST 8.26.1 5 Health Care Decision (hx) 12/18/2021 ADVANCE DIRECTIVE Health Care Decision (hx) 12/18/2021 ADVANCE DIRECTIVE Health Care Decision (hx) 12/18/2021 ADVANCE DIRECTIVE Health Care Decision (hx) 12/18/2021 ADVANCE DIRECTIVE Health Care Decision (hx) 12/18/2021 ADVANCE DIRECTIVE Health Care Decision (hx) 12/18/2021 ADVANCE DIRECTIVE Health Care Decision (hx) 12/18/2021 ADVANCE DIRECTIVE Health Care Decision (hx) 12/18/2021 ADVANCE DIRECTIVE Health Care Decision (hx) 12/18/2021 ADVANCE DIRECTIVE Health Care Decision (hx) 12/18/2021 ADVANCE DIRECTIVE Health Care Decision (hx) 12/18/2021 ADVANCE DIRECTIVE Health Care Decision (hx) 12/18/2021 ADVANCE DIRECTIVE Health Care Decision (hx) 12/18/2021 ADVANCE DIRECTIVE Health Care Decision (hx) 12/18/2021 ADVANCE DIRECTIVE Health Care Decision (hx) 12/18/2021 ADVANCE DIRECTIVE Health Care Decision (hx) 12/18/2021 ADVANCE DIRECTIVE Health Care Decision (hx) 12/18/2021 ADVANCE DIRECTIVE Health Care Decision (hx) 12/18/2021 ADVANCE DIRECTIVE Health Care Decision (hx) 12/18/2021 ADVANCE DIRECTIVE Health Care Decision (hx) 12/18/2021 ADVANCE DIRECTIVE Health Care Decision (hx) 12/18/2021 ADVANCE DIRECTIVE Health Care Decision (hx) 12/18/2021 ADVANCE DIRECTIVE Health Care Decision (hx) 12/18/2021 ADVANCE DIRECTIVE Health Care Decision (hx) 12/18/2021 ADVANCE DIRECTIVE Health Care Decision (hx) 12/18/2021 ADVANCE DIRECTIVE Health Care Decision (hx) 12/18/2021 ADVANCE DIRECTIVE Health Care Decision (hx) 12/18/2021 ADVANCE DIRECTIVE Health Care Decision (hx) 12/18/2021 ADVANCE DIRECTIVE Health Care Decision (hx) 12/18/2021 ADVANCE DIRECTIVE Health Care Decision (hx) 12/18/2021 ADVANCE DIRECTIVE Health Care Decision (hx) 12/18/2021 ADVANCE DIRECTIVE Health Care Decision (hx) 12/18/2021 ADVANCE DIRECTIVE Health Care Decision (hx) 12/18/2021 ADVANCE DIRECTIVE Health Care Decision (hx) 12/18/2021 ADVANCE DIRECTIVE Health Care Decision (hx) 12/18/2021 ADVANCE DIRECTIVE Health Care Decision (hx) 06/08/2018 ADVANCE DIRECTIVE Health Care Decision (hx) 06/08/2018 ADVANCE DIRECTIVE Health Care Decision (hx) 06/08/2018 ADVANCE DIRECTIVE Health Care Decision (hx) 06/08/2018 ADVANCE DIRECTIVE Health Care Decision (hx) 06/08/2018 ADVANCE DIRECTIVE Health Care Decision (hx) 06/08/2018 ADVANCE DIRECTIVE Health Care Decision (hx) 06/08/2018 ADVANCE DIRECTIVE Health Care Decision (hx) 06/08/2018 ADVANCE DIRECTIVE Health Care Decision (hx) 06/08/2018 ADVANCE DIRECTIVE Health Care Decision (hx) 06/08/2018 ADVANCE DIRECTIVE Health Care Decision (hx) 06/08/2018 ADVANCE DIRECTIVE Health Care Decision (hx) 06/08/2018 ADVANCE DIRECTIVE Health Care Decision (hx) 06/08/2018 ADVANCE DIRECTIVE Health Care Decision (hx) 06/08/2018 ADVANCE DIRECTIVE Health Care Decision (hx) 06/08/2018 ADVANCE DIRECTIVE Health Care Decision (hx) 06/08/2018 ADVANCE DIRECTIVE Health Care Decision (hx) 06/08/2018 ADVANCE DIRECTIVE Health Care Decision (hx) 06/08/2018 ADVANCE DIRECTIVE Health Care Decision (hx) 06/08/2018 ADVANCE DIRECTIVE Health Care Decision (hx) 06/08/2018 ADVANCE DIRECTIVE Health Care Decision (hx) 06/08/2018 ADVANCE DIRECTIVE Health Care Decision (hx) 06/08/2018 ADVANCE DIRECTIVE Health Care Decision (hx) 06/08/2018 ADVANCE DIRECTIVE Health Care Decision (hx) 06/08/2018 ADVANCE DIRECTIVE Health Care Decision (hx) 06/08/2018 ADVANCE DIRECTIVE Health Care Decision (hx) 06/08/2018 ADVANCE DIRECTIVE Health Care Decision (hx) 06/08/2018 ADVANCE DIRECTIVE Health Care Decision (hx) 06/08/2018 ADVANCE DIRECTIVE Health Care Decision (hx) 06/08/2018 ADVANCE DIRECTIVE Health Care Decision (hx) 06/08/2018 ADVANCE DIRECTIVE Health Care Decision (hx) 06/08/2018 ADVANCE DIRECTIVE Health Care Decision (hx) 06/08/2018 ADVANCE DIRECTIVE Health Care Decision (hx) 06/08/2018 ADVANCE DIRECTIVE Health Care Decision (hx) 06/08/2018 ADVANCE DIRECTIVE Health Care Decision (hx) 06/08/2018 ADVANCE DIRECTIVE Health Care Decision (hx) 06/08/2018 ADVANCE DIRECTIVE Health Care Decision (hx) 06/08/2018 ADVANCE DIRECTIVE Health Care Decision (hx) 06/08/2018 ADVANCE DIRECTIVE Health Care Decision (hx) 06/08/2018 ADVANCE DIRECTIVE Health Care Decision (hx) 06/08/2018 ADVANCE DIRECTIVE Health Care Decision (hx) 06/08/2018 ADVANCE DIRECTIVE Health Care Decision (hx) 06/08/2018 ADVANCE DIRECTIVE Health Care Decision (hx) 06/08/2018 ADVANCE DIRECTIVE Health Care Decision (hx) 06/08/2018 ADVANCE DIRECTIVE Health Care Decision (hx) 06/08/2018 ADVANCE DIRECTIVE Health Care Decision (hx) 06/08/2018 ADVANCE DIRECTIVE Health Care Decision (hx) 06/08/2018 ADVANCE DIRECTIVE Health Care Decision (hx) 06/08/2018 ADVANCE DIRECTIVE Health Care Decision (hx) 06/08/2018 ADVANCE DIRECTIVE * Full Code - Default (Latest Code Status on File) Date Activated Date Inactivated Comments 01/02/2025 9:44 PM 01/08/2025 7:03 PM This is orde r is used when code status has not been discussed with the patient, or code status is otherwise unknown/unconfirmed To update the patient's code status, place a code status order. Do not modify or discontinue any currently active code status orders. * Full Code - Default Date Activated Date Inactivated Comments 12/11/2024 1:58 PM 12/14/2024 6:08 PM This is orde r is used when code status has not been discussed with the patient, or code status is otherwise unknown/unconfirmed To update the patient's code status, place a code status order. Do not modify or discontinue any currently active code status orders. * Full Code - Confirmed Date Activated Date Inactivated Comments 10/15/2024 12:06 PM 12/11/2024 1:58 PM This code s tatus was ascertained in the following way: Code status discussion: per living will or healthcare instructions To update the patient's code status, place a code status order. Do not modify or discontinue any currently active code status orders. Healthcare Agents on File Name Relationship Healthcare Agent Relationshi p Communication Romero Ernandez [facility] Agent Care Teams Forest Supervisor Relationship Specialty Start Date End Date Todd Laurent NP [address] [place] [address] PCP - General 02/11/23
--- OUTSIDE RECORDS SUMMARY | 2025-03-11 14:10 | XMS_ITS | Clinical Summary ---
Author Organization [facility] Address [address] [place] [address] Phone Care Team Providers Care Consulting Property Manager Name Role Phone Todd Laurent MD Primary Care Provider Unavailabl e Allergies Active Allergy Reactions Criticality Noted Date Comments Adhesive Tape 03/26/2024 Other Reaction(s): skin disolves Cyclobenzaprine Other (see comments) Medium 09/14/2012 Other Reaction(s): anxiety/heart palpitations Loss of muscle control could not control muscles in neck Fish Oil Anaphylaxis High 03/05/2021 Throat swelling Latex 03/26/2024 Other Reaction(s): skin breakdown Lisinopril Other (see comments) Medium 09/14/2012 Chronic cough Medications isosorbide mononitrate (IMDUR) 30 MG 24 hr tablet Take 30 mg by mouth 1 (one) time each day Do not crush or chew. Active gabapentin (NEURONTIN) 300 MG capsule Take 300 mg by mouth in the morning and 300 mg in the evening and 300 mg before bedtime. Active pantoprazole (PROTONIX) 40 MG EC tablet Take 40 mg by mouth 1 (one) time each day before breakfast Do not crush, chew, or split. Active atorvastatin (LIPITOR) 20 MG tablet Take 20 mg by mouth 1 (one) time each day Active docusate sodium (COLACE) 100 MG capsule Take 100 mg by mouth in the morning and 100 mg in the evening. Active fluticasone (VERAMYST) 27.5 MCG/SPRAY nasal spray Administer 2 sprays into each nostril 1 (one) time each day Active acetaminophen (TYLENOL) 500 MG tablet Take by mouth every 6 (six) hours if needed for mild pain Active metoprolol succinate XL (TOPROL XL) 50 MG 24 hr tablet Take 50 mg by mouth 1 (one) time each day Do not crush or chew. Active spironolactone (ALDACTONE) 25 MG tablet Take 25 mg by mouth 1 (one) time each day Active torsemide (DEMADEX) 20 MG tablet Take 20 mg by mouth 1 (one) time each day Active Dulaglutide (Trulicity) 4.5 MG/0.5ML solution auto-injector Inject under the skin Active insulin glargine (LANTUS) 100 UNIT/ML injection Inject under the skin every night Active insulin lispro protamine-insuli n lispro (HumaLOG 50-50) (50-50) 100 UNIT/ML inj pen Inject under the skin 2 (two) times a day before meals Active sennosides-docus ate sodium (SENOKOT-S) 8.6-50 MG tablet Take 1 tablet by mouth 1 (one) time each day Active Upadacitinib ER 45 MG tablet sustained-releas e 24 hour Take 45 mg by mouth 1 (one) time each day Active buPROPion SR (WELLBUTRIN SR) 150 MG 12 hr tablet Take 150 mg by mouth in the morning and 150 mg in the evening. Do not crush, chew, or split.. Active FLUoxetine (PROzac) 10 MG capsule Take 10 mg by mouth 1 (one) time each day Active Ferrous Fumarate (FERRIMIN 150 PO) Take by mouth Active Dapagliflozin Propanediol 5 MG tablet Take 5 mg by mouth 1 (one) time each day in the morning Active Active Problems Problem Noted Date Diagnosed Date Hypertension 07/24/2024 Chronic kidney disease, stage 4 (severe) 024 Anemia in chronic kidney disease 06/26/2024 Other acute kidney failure 03/26/2024 Stage 3b chronic kidney disease 03/26/2024 History of polyp of colon 10/13/2023 History of Helicobacter pylori infection 024 History of syncope 10/13/2023 Acute coronary syndrome 09/26/2023 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 Continue current dose of Lasix. Would recommend that he call his PCP at [facility] for weight gain of more than 3 pounds in 1 day or 5 pounds in 1 week. Low-salt diet encouraged. Congestive heart failure 06/22/2017 Overview (03/26/2024): Last Assessment & Plan: Patient does have history of chronic diastolic heart failure is in the hospital he is weight was up by 10 pounds. Since he has been on the higher dose of the diuretic he is lost about 10 pounds. His breathing is doing better. I did give him a slip to repeat his blood work. Fatty liver 06/22/2017 Hearing loss 01/16/2015 Acquired hypothyroidism 11/29/2013 Body mass index 40+ - severely obese 09/11/2013 Anxiety 08/30/2013 Renal stone 05/29/2013 Chronic kidney disease stage 2 05/27/2013 Allergic rhinitis 05/22/2013 Benign hypertensive heart AND renal disease 08/2012 Colostomy present 05/22/2013 Congenital insufficiency of aortic valve 013 Gastroesophageal reflux disease 05/22/2013 History of aortic valve replacement 05/09/2013 Overview (03/26/2024): Last Assessment & Plan: History of bioprosthetic aortic valve replacement in 2003. Normal sounding aortic valve on exam. Stable on most recent echo. Type 2 diabetes mellitus wit h other diabetic ophthalmic complication 05/09/2013 Karen's thyroiditis 01/17/2013 Internal hemorrhoids 05/17/2012 Acute sinusitis 10/11/1999 Cellulitis and abscess of unspecified sites 08/1999 Overview (03/26/2024): Sep 21, 1999 Entered By: DALY MANUEL Comment: RiccardoRylieelbow Hyperlipidemia 08/22/1997 Overview (03/26/2024): Last Assessment & Plan: No recent lipid panel. Managed by [facility]. Continue statin therapy. Immunizations Immunization Administration Dates Next Due Hepatitis A 07/27/2018 Hepatitis B 06/27/2018 Influenza TIV (IM) 05/19/2020 Influenza, Unspecified 07/10/2001,07/10/1999 Pfizer SARS-COV-2 09/28/2020,09/07/2020 Pneumococcal Conjugate 13-Valent 10/12/2016 Pneumococcal Polysaccharide 06/22/2008 Tdap 11/25/2011 Family History Medical History Relation Comments Diabetes Father Stroke Father Diabetes Mother Heart disease Mother Diabetes Sister Relation Status Comments Father Mother Sister Social History Tobacco Use Types Packs/Day Years Used Date Smoking Tobacco: Former Cigarettes Tobacco Cessation:Counseling Given: Not Answered Alcohol Use Standard Drinks/Week Comments Yes 0 (1 standard drink = 0.6 oz pur e alcohol) Sex and Gender Information Value Date Recorded Sex Assigned at Not on file Legal Sex Male 8:50 AM EDT Gender Identity Not on file Sexual Orientation Not on file Last Filed Vital Signs Vital Sign Reading Time Taken Comments Blood Pressure 130/70 07/24/2024 2:48 PM EST Pulse 59 07/24/2024 2:48 PM EST Temperature - - Respiratory Rate - - Oxygen Saturation 96% 03/26/2024 4:26 PM EDT Inhaled Oxygen Concentration - - Weight 103 kg (226 lb) 07/24/2024 2:48 PM EST Height - - Body Mass Index - - Plan of Treatment Health Maintenance Due Date Last Done Comments Colorectal Cancer Screening: Annual FOBT 2000 Colorectal Cancer Screening: Colonoscopy 2000 Colorectal Cancer Screening: Sigmoidoscopy 2000 Pneumococcal Vaccine: 50+ Years (3 of 3 - PCV20 or PCV21) 12/07/2016 10/12/2016, 06/22/2008 Diabetes: Hemoglobin A1C 05/03/2022 Diabetes: Ophthalmology Exam 05/03/2022 Diabetes: Pedal Pulse Checked 05/03/2022 Diabetes: Sensory Foot Exam 05/03/2022 Diabetes: Visual Foot Exam 05/03/2022 Influenza Vaccine (#1) 2025 0, 07/10/2001, 07/10/1999 Hepatitis B Vaccine Aged Out 06/27/2018 No longe r eligible based on patient's age to complete this topic Insurance [facility] [place] [address] Medicaid [place] [facility] Medicaid [place] Care Teams Consulting Property Manager Relationship Specialty Start Date End Date Todd Laurent MD PCP - General Family Medicine 03/26/24
--- OUTSIDE RECORDS SUMMARY | 2025-03-11 14:10 | XMS_ITS | Encounter Summary ---
Author Organization [facility] Address [address] [place] [address] Care Team Providers Care Tray Casting Machine Operator Name Role Phone Zulema Salas MD Primary Care Provider [phone] Encounter Details Date Type Department Care Team (Late st Contact Info) Description 11/12/[address] [facility] [address] [place] [address] Social History Tobacco Use Types Packs/Day Years Used Date Smoking Tobacco: Never Assessed Sex and Gender Information Value Date Recorded Sex Assigned at Not on file Legal Sex Male 3:22 PM EDT Gender Identity Not on file Sexual Orientation Not on file documented as of this encounter Plan of Treatment Not on file documented as of this encounter Visit Diagnoses Not on filedocumented in this encounter Care Teams Tray Casting Machine Operator Relationship Specialty Start Date End Date Zulema Salas MD [address] [place] [id number] PCP - General Internal Medicine 05/22/13 documented as of this encounter
== END 2025-03-11 13:41 | disposition home or self-care (01) ==
LOC: HO.HSM 13:25
PROVIDERS: PCP Nurse Practitioner; Visit Provider Psychiatry & Neurology Neurology
DX: G40.209 Localization-related (focal) (partial) symptomatic epilepsy and epileptic syndromes with complex partial seizures, not intractable, without status epilepticus (principal); G25.0 Essential tremor
CPT/HCPCS: 99214

== ENCOUNTER → 2025-03-11 13:25 | Outpatient (BNVA) | payer OTHER, SELFPAY | PROVIDERS: PCP Nurse Practitioner; Visit Provider Psychiatry & Neurology Neurology | DX: G40.209 Localization-related (focal) (partial) symptomatic epilepsy and epileptic syndromes with complex partial seizures, not intractable, without status epilepticus (principal); G25.0 Essential tremor | CPT/HCPCS: 99212 ==

== ENCOUNTER 2025-08-05 08:56 | Outpatient (AMB) | payer OTHER, SELFPAY ==
--- NOTE | 2025-08-05 09:04 | A.OFFVIS_ITS ---
Intake Visit Reasons: Recent Sz 07/24/2025 Allergies adhesive Allergy (Unknown, Verified 03/05/25 11:21) Unknown cyclobenzaprine (CYCLOBENZAPRINE) Allergy (Unknown, Unverified 05/08/20 16:18) LOSS OF MUSCLE CONTROL lisinopril (LISINOPRIL) Allergy (Unknown, Unverified 05/08/20 16:18) COUGH SEAFOOD Allergy (Unknown, Uncoded 05/08/20 16:18) THROAT CLOSES SEASONAL ALLERGIES Allergy (Unknown, Uncoded 05/08/20 16:18) RUNNY NOSE HPI Comments Details: 74 yo LH man with CAD, arotic stenosis s/p bovine valve replacement, CHF, IDDM, HTN, Chron's disease, CDK, and SIRISHA was initially see for seizure disorder. His EEG has not shown abnormalities but he was admitted at [facility] in Jul with another episode lasting for a few minutes when he was described as stiff with eyes deviated. He was struggling with his different conditions including his mood and his physical inability to do certain things. He was helped by a local pace program. [facility] Medical History (Updated 08/05/25 @ 09:15 by Tigre Ordoñez MD) CKD (chronic kidney disease) Depression CAD (coronary artery disease) SIRISHA (obstructive sleep apnea) COPD (chronic obstructive pulmonary disease) Acute Crohn's disease CHF (congestive heart failure) HLD (hyperlipidemia) Hypertension Benign essential tremor Complex partial seizures Review of Systems Narrative General: Generalized fatigue and tiredness Neurological: Forgetfulness and difficulty walking and tremor Psychiatric: Depressed mood Sleep: Erratic. Genitourinary: No loss of bowel bladder control Cardiovascular: No shortness of breath palpitation Respiratory: No shortness of breath GI: No nausea or vomiting Physical Exam Neuro Other: Mental Status: Alert and oriented to person, place, and time. Normal attention. Normal spontaneous speech, fluency, and comprehension. Cranial Nerves: CN II: Visual soto full to confrontation, visual acuity intact. CN III, IV, : Pupils equal, round, reactive to light and accommodation. Extraocular movements are normal. CN V: Facial sensation is normal. CN VII: Facial movements symmetrical. CN VIII: Hearing intact to bedside conversation is normal. CN IX, X: Palate elevates symmetrically. CN XI: Shoulder shrug and head turn symmetrical. CN XII: Tongue midline without atrophy or fasciculations. Extrapyramidal: Mild to moderate b/l hand postural tremor Gait: Slow and cautious with a walker Speech: Normal; no dysarthria or tremor. Results Reviewed Results Reviewed: His metabolic profile was normal on July 24 with normal liver enzymes except that creatinine was between 1.8-2.14 range. Assessment & Plan Assessment & Plan (1) Complex partial seizures: Comment: 48 hr EEG at [facility] in 2023: OK with one seizure EEG at off in Apr 2024: Slow MRI and CT brain WO at [facility] in Jul 2025: Mod cortical and central atrophy CT brain WO at [facility] in December 2023: Mod diff atrophy CTA brain and neck at [facility] in December 2023: OK. Code(s): G40.209 - Localization-related (focal) (partial) symptomatic epilepsy and epileptic syndromes with complex partial seizures, not intractable, without status epilepticus Category: Medical (2) Benign essential tremor: Code(s): G25.0 - Essential tremor Category: Medical (3) Primary degenerative dementia: Code(s): F03.90 - Unspecified dementia, unspecified severity, without behavioral disturbance, psychotic disturbance, mood disturbance, and anxiety Category: Medical Plan Impression: a: Dementia due to significant cerebellar and cerebral cortical and central atrophy a: Benign essential tremor b: Complex partial seizure disorder c: Behavioral disorder Rec: a: DC primidone due to its potential for interactions with other meds b: Continue Lacosamide that was started at [facility] c: B12/folate, syphllis test Orders: Orders Vitamin B12 and Folate Today F03.90 - Unspecified dementia, unspecified severity, without behavioral disturbance, psychotic disturbance, mood disturbance, and anxiety Syphilis Screen Today F03.90 - Unspecified dementia, unspecified severity, without behavioral disturbance, psychotic disturbance, mood disturbance, and anxiety Medications: Discontinued primidone Discontinued Reason: Doctor's Order 100 mg (2 x 50 mg) PO BID 30 days 120 tabs 0RF Coding Level of Care Code Est Pt Level 4 (83756) Diagnoses Complex partial seizures G40.209 Benign essential tremor G25.0 Primary degenerative dementia F03.90
== END 2025-08-05 09:32 | disposition home or self-care (01) ==
LOC: HO.HSM 08:56
PROVIDERS: PCP Nurse Practitioner; Visit Provider Psychiatry & Neurology Neurology
DX: G40.209 Localization-related (focal) (partial) symptomatic epilepsy and epileptic syndromes with complex partial seizures, not intractable, without status epilepticus (principal); G25.0 Essential tremor; F03.90 Unspecified dementia, unspecified severity, without behavioral disturbance, psychotic disturbance, mood disturbance, and anxiety
CPT/HCPCS: 99214

== ENCOUNTER → 2025-08-05 08:56 | Outpatient (BNVA) | payer OTHER, SELFPAY | PROVIDERS: PCP Nurse Practitioner; Visit Provider Psychiatry & Neurology Neurology | DX: G40.209 Localization-related (focal) (partial) symptomatic epilepsy and epileptic syndromes with complex partial seizures, not intractable, without status epilepticus (principal); G25.0 Essential tremor; F03.918 Unspecified dementia, unspecified severity, with other behavioral disturbance; Z79.899 Other long term (current) drug therapy | CPT/HCPCS: 99212 ==